=== PATIENT | male | born 1970 | race Caucasian/White ===

== ENCOUNTER 2018-01-02 14:17 | Observation (INO) | payer MEDICARE, OTHER ==
[~2018-01-02] VITALS: Ht 172.7 cm; Wt 110.0 kg
[~2018-01-02 14:17] MED LIST: DICL75 PO; MEDR4PAK3 PO; PAXI20TA26 PO; ROBA750T3 PO
[2018-01-02 14:19] VITALS: BP 190/100; PULSE 115; RESP 28; TEMP 98.4; O2SAT 95
[2018-01-02] MEDS ORDERED: LISI-515 PO (17:32)
[2018-01-02] MEDS ORDERED: HYDR-3366 PO (17:32)
[2018-01-02] MEDS ORDERED: PAXI30TA7 PO (17:32)
--- NOTE | 2018-01-02 17:43 | PD ---
HPI Chief Complaint: Back/ Neck Pain or Injury Time Seen by Provider: 17:31 Travel History International Travel<30 days: No Contact w/Intl Traveler<30days: No Traveled to known affect area: No History of Present Illness HPI 47-year-old male here for evaluation of lower back pain, leg weakness, leg numbness. The patient reports that he had a mechanical fall and landed onto his back about 4 weeks ago. Since that time he has been having worsening lower back pain. Pain is described as ripping, constant, 9 out of 10, worse with movements. Dates that it is very difficult for him to ambulate because of the pain. He also describes thigh numbness. Pain is mainly over his left lower back. He denies urinary or bowel incontinence or retention. No history of IVDU. PFSH Past Medical History Blood Disorders: No Anxiety: Yes Depression: Yes Cancer: No Cardiovascular Problems: Yes Diabetes: No Diminished Hearing: No Endocrine: No Gastrointestinal Disorders: Yes GERD: Yes Glaucoma: No Genitourinary: No Hepatitis: No Hiatal Hernia: No Hypertension: No Immune Disorder: No Implanted Vascular Access Dvce: Yes Medical other: No (CHRONIC BACK PAIN) Musculoskeletal: Yes Neurologic: Yes Psychiatric: Yes Reproductive: No Respiratory: Yes Sleep Apnea: Yes Thyroid Disease: No PNEUMOCCOCAL Vaccine (Year): 2 Past Surgical History Body Medical Devices: HARDWARE NECK AND RIGHT LEG Neurologic Surgery: Yes (CERVICAL FUSION, NECK) Other Surgery: Yes Social History Alcohol Use: No Tobacco Use: Yes (1 PPD) Substance Use: No Allergies-Medications (Allergen,Severity, Reaction): Coded Allergies: acetaminophen (Unverified Allergy, Severe, 01/02/18) LIVER PROBLEMS alprazolam (Unverified Adverse Reaction, Severe, 01/02/18) zolpidem (Unverified Adverse Reaction, Severe, WAKES UP SOMEWHERE ELSE, 01/02/18) Reported Meds & Prescriptions Reported Meds & Active Scripts Active Reported Paxil (Paroxetine HCl) 30 Mg Tab 30 Mg PO DAILY [place] (Hydrocodone-Acetaminophen) 10-325 Mg Tab 1 Tab PO Q6H PRN Lisinopril 20 Mg Tab 20 Mg PO DAILY Review of Systems Except as stated in HPI: all other systems reviewed are Neg Physical Exam Narrative GENERAL: Well-developed, well-nourished, awake, alert, comfortable, no apparent distress. SKIN: Focused skin assessment warm/dry. HEAD: Atraumatic. Normocephalic. EYES: Pupils equal and round. No scleral icterus. No injection or drainage. ENT: No nasal bleeding or discharge. Mucous membranes pink and moist. NECK: Trachea midline. No JVD. CARDIOVASCULAR: Regular rate and rhythm. RESPIRATORY: No accessory muscle use. Clear to auscultation. Breath sounds equal bilaterally. GASTROINTESTINAL: Abdomen soft, non-tender, nondistended. MUSCULOSKELETAL: No obvious deformities. No clubbing. No cyanosis. No edema. No midline vertebral step-off or tenderness. NEUROLOGICAL: Awake and alert. No obvious cranial nerve deficits. Motor grossly within normal limits. Normal speech. Bilateral great toe extension present. No saddle anesthesia. Brisk patellar tendon reflexes bilaterally. Normal flexion and extension in bilateral lower extremities. PSYCHIATRIC: Appropriate mood and affect; insight and judgment normal. Data Data Last Documented VS Vital Signs Date Time Temp Pulse Resp B/P (MAP) Pulse Ox O2 Delivery O2 Flow Rate FiO2 01/02/18 18:19 93 18 225/124 (157) 95 01/02/18 14:19 98.4 Orders Orders Complete Blood Count With Diff (01/02/18 17:35) Comprehensive Metabolic Panel (01/02/18 17:35) Prothrombin Time / Inr (Pt) (01/02/18 17:35) Act Partial Throm Time (Ptt) (01/02/18 17:35) Iv Access Insert/Monitor (01/02/18 17:35) Ecg Monitoring (01/02/18 17:35) Oximetry (01/02/18 17:35) Sodium Chloride 0.9% Flush (Ns Flush) (01/02/18 17:45) Mri L Spine W/O Contrast (01/02/18 ) Ketorolac Inj (Toradol Inj) (01/02/18 17:45) Dexamethasone Inj (Decadron Inj) (01/02/18 17:45) Morphine Inj (Morphine Inj) (01/02/18 19:45) Enalaprilat Inj (Vasotec Inj) (01/02/18 20:15) Labs Laboratory Tests Test 01/02/18 17:55 White Blood Count 12.4 TH/MM3 Red Blood Count 5.28 MIL/MM3 Hemoglobin 16.1 GM/DL Hematocrit 46.3 % Mean Corpuscular Volume 87.6 FL Mean Corpuscular Hemoglobin 30.5 PG Mean Corpuscular Hemoglobin Concent 34.9 % Red Cell Distribution Width 15.5 % Platelet Count 316 TH/MM3 Mean Platelet Volume 8.2 FL Neutrophils (%) (Auto) 60.5 % Lymphocytes (%) (Auto) 27.2 % Monocytes (%) (Auto) 9.4 % Eosinophils (%) (Auto) 2.0 % Basophils (%) (Auto) 0.9 % Neutrophils # (Auto) 7.5 TH/MM3 Lymphocytes # (Auto) 3.4 TH/MM3 Monocytes # (Auto) 1.2 TH/MM3 Eosinophils # (Auto) 0.2 TH/MM3 Basophils # (Auto) 0.1 TH/MM3 CBC Comment DIFF FINAL Differential Comment Prothrombin Time 10.1 SEC Prothromb Time International Ratio 1.0 RATIO Activated Partial Thromboplast Time 36.4 SEC Blood Urea Nitrogen 16 MG/DL Creatinine 0.85 MG/DL Random Glucose 118 MG/DL Total Protein 8.4 GM/DL Albumin 4.2 GM/DL Calcium Level 9.3 MG/DL Alkaline Phosphatase 102 U/L Aspartate Amino Transf (AST/SGOT) 38 U/L Alanine Aminotransferase (ALT/SGPT) 56 U/L Total Bilirubin 0.5 MG/DL Sodium Level 138 MEQ/L Potassium Level 3.3 MEQ/L Chloride Level 103 MEQ/L Carbon Dioxide Level 28.7 MEQ/L Anion Gap 6 MEQ/L Estimat Glomerular Filtration Rate 96 ML/MIN MDM Medical Decision Making Medical Screen Exam Complete: Yes Emergency Medical Condition: Yes Differential Diagnosis Sciatica, cauda equina syndrome, spinal stenosis, lumbar fracture Narrative Course Initial vital signs show heart rate 115, blood pressure 190/100, pulse ox 95% on room air, tympanic temp of 98.4F. CBC: WBC 12.4, hemoglobin 16.1, medical 46.3, platelets 316. CMP is remarkable for potassium 3.3, otherwise unremarkable. MRI of the lumbar spine: CONCLUSION: 1. Moderate to severe spinal stenosis and bilateral foraminal narrowing at L4-5 secondary to diffuse asymmetric disc bulge to the left, facet joint hypertrophy and ligament laxity. 2. Moderate to severe left neuroforaminal narrowing and moderate right neuroforaminal narrowing at L5-S1 without spinal stenosis. 3. Mild to moderate bilateral foraminal narrowing without spinal stenosis at L3- 4. 4. Mild bilateral foraminal narrowing without spinal stenosis at L2-3. 5. Old moderate compression fracture of L1 with 3 mm of retropulsion of the posterior superior wall. 6. No acute fracture, spondylolisthesis or spondylolysis. 7. Degenerative disc disease at L4-5 and L5-S1 and T12-L1. Patient was initially given IV Decadron and IV Toradol, however his pain continues. His blood pressure also increased from triage vital signs. He was given a dose of IV morphine 4 mg and reports significant improvement in pain. His blood pressure still remains elevated. He takes lisinopril. I will give him a dose of Vasotec. The patient has no urinary or bowel incontinence or retention. He does note that when he is urinating he is unsure when he is finished as a sensation continues. He has brisk patellar tendon reflexes bilaterally and great toe extension present bilaterally. His left lower extremity appears to be somewhat weaker than his right lower cavity. He does admit to having an abnormal/ numbness sensation to his bilateral legs, seemingly worse on the right. There is no saddle anesthesia on exam. Case discussed with on-call neurosurgeon Dr. Gomez who has reviewed the patient' s MRI imaging. He will admit the patient to his service for likely operative intervention. Patient was made aware of all findings and is amenable with this plan. Diagnosis Primary Impression: Spinal stenosis at L4-L5 level Additional Impression: Intractable low back pain Admitting Information Admitting Physician Requests: Edgar Oneill MD Jan 02, 2018 17:42
[2018-01-02] MEDS ORDERED: DEXAMETHASONE SOD PHOS 20 MG/5 ML VIAL IV PUSH ONE (17:45)
[2018-01-02] MEDS ORDERED: KETOROLAC TROMETHAMINE 30 MG/ML (IVP) VIAL IV PUSH ONE (17:45)
[2018-01-02 18:19] VITALS: BP 225/124; PULSE 93; RESP 18; O2SAT 95
[2018-01-02 18:31] LABS: AUTOMATED NEUTROPHIL # 7.5 TH/MM3 (1.8-7.7); BASOPHIL # 0.1 TH/MM3 (0-0.2); BASOPHIL % 0.9 % (0.0-2.0); EOSINOPHIL # 0.2 TH/MM3 (0-0.4); HEMATOCRIT 46.3 % (39.0-51.0); HEMOGLOBIN 16.1 GM/DL (13.0-17.0); LYMPH % 27.2 % (9.0-44.0); LYMPHOCYTE # 3.4 TH/MM3 (1.0-4.8); MEAN CELL VOLUME 87.6 FL (80.0-100.0); MEAN CORPUSCULAR HEMOGLOBIN 30.5 PG (27.0-34.0); MEAN CORPUSCULAR HGB CONC 34.9 % (32.0-36.0); MEAN PLATELET VOLUME 8.2 FL (7.0-11.0); MONO % 9.4 % (0.0-8.0); MONOCYTE # 1.2 TH/MM3 (0-0.9); NEUT % 60.5 % (16.0-70.0); PLATELET COUNT 316 TH/MM3 (150-450); RED BLOOD COUNT 5.28 MIL/MM3 (4.50-5.90); RED CELL DISTRIBUTION WIDTH 15.5 % (11.6-17.2); WHITE BLOOD COUNT 12.4 TH/MM3 (4.0-11.0)
[2018-01-02 18:38] LABS: PROTHROMBIN TIME - PATIENT 10.1 SEC (9.8-11.6)
[2018-01-02 18:52] LABS: ALBUMIN 4.2 GM/DL (3.4-5.0); AST (GOT) 38 U/L (15-37); BICARBONATE 28.7 MEQ/L (21.0-32.0); BLOOD UREA NITROGEN 16 MG/DL (7-18); CALCIUM 9.3 MG/DL (8.5-10.1); CHLORIDE 103 MEQ/L (98-107); CREATININE 0.85 MG/DL (0.60-1.30); GLOMERULAR FILTRATION RATE 96 ML/MIN (>89); GLUCOSE,RANDOM 118 MG/DL (74-106); SODIUM (NA) 138 MEQ/L (136-145)
[2018-01-02 18:53] LABS: ALT (GPT) 56 U/L (12-78)
[2018-01-02 18:55] LABS: ALKALINE PHOSPHATASE 102 U/L (45-117); TOTAL BILIRUBIN ADULT 0.5 MG/DL (0.2-1.0); TOTAL PROTEIN 8.4 GM/DL (6.4-8.2)
--- NOTE | 2018-01-02 19:34 | RADRPT ---
EXAM DATE/TIME: 01/02/2018 18:49 [facility] COMPARISON: No previous studies available for comparison. INDICATIONS : Radiculopathy. Numbness in bilateral legs and unable to ambulate. MEDICAL HISTORY : Hypertension. SURGICAL HISTORY : Fusion, cervical. Right leg. ENCOUNTER: Initial ACUITY: 1 day PAIN SCORE: 0/10 LOCATION: Back. TECHNIQUE: Multiplanar multisequence MRI of the lumbar spine was performed without contrast. FINDINGS: There is an old moderate compression fracture involving the superior endplate of L1. There is 3 mm of retropulsion of the posterior-superior wall of L1. No acute compression deformity of the lumbar spin e is noted. No spondylolisthesis or spondylolysis is noted. There is disc space narrowing and loss of disc signal at L4-5 and L5-S1. T12-L1: There is 3 mm of retropulsion of the posterior superior wall of the L1 vertebral body resulting in sl ight effacement of the intrathecal sac. No spinal stenosis is noted. No focal disc herniation is note d. Mild facet joint hypertrophy and ligamentous laxity is noted. The bilateral neural foramina are pa tent. L1-L2: The thecal sac has a normal diameter. No evidence of disc bulge or protrusion. The neural foramina are patent bilaterally. Mild facet joint hypertrophy and ligament/is noted. L2-L3: Minimal diffuse disc bulge, facet hypertrophy and ligament laxity are noted resulting in mild bilater al foraminal narrowing but no spinal stenosis. No focal disc herniation is noted. L3-L4: Mild diffuse disc bulge, facet joint hypertrophy and ligamentous laxity result in mild to moderate fo raminal narrowing but no spinal stenosis. No focal disc herniation is noted. L4-L5: Moderate to severe spinal stenosis and bilateral foraminal narrowing is noted secondary to diffuse as ymmetric disc bulge to left, facet joint hypertrophy and ligamentous laxity. L5-S1: Diffuse disc bulge, facet joint hypertrophy and ligamentous laxity result in moderate to severe left neuroforaminal narrowing and moderate right neuroforaminal narrowing but no spinal stenosis. No focal disc herniation is noted. CONCLUSION: 1. Moderate to severe spinal stenosis and bilateral foraminal narrowing at L4-5 secondary to diffuse asymmetric disc bulge to the left, facet joint hypertrophy and ligament laxity. 2. Moderate to severe left neuroforaminal narrowing and moderate right neuroforaminal narrowing at L5 -S1 without spinal stenosis. 3. Mild to moderate bilateral foraminal narrowing without spinal stenosis at L3-4. 4. Mild bilateral foraminal narrowing without spinal stenosis at L2-3. 5. Old moderate compression fracture of L1 with 3 mm of retropulsion of the posterior superior wall. 6. No acute fracture, spondylolisthesis or spondylolysis. 7. Degenerative disc disease at L4-5 and L5-S1 and T12-L1. Jl Rodgers MD on January 02, 2018 at 19:23 Board Certified Radiologist. This report was verified electronically.
[2018-01-02] MEDS ORDERED: MORPHINE SULFATE 2 MG/ML INJ IV PUSH ONE (19:45)
[2018-01-02] MEDS ORDERED: ENALAPRILAT 2.5 MG/2 ML VIAL IV PUSH ONE (20:15)
[2018-01-02] MEDS ORDERED: HYDROmorphone HCL PF 2 MG/ML VIAL IV PUSH PRN (20:30)
[2018-01-02] MEDS ORDERED: NALOXONE HCL 0.4 MG/ML AMP IV PUSH PRN (20:30)
[2018-01-02] MEDS ORDERED: ENALAPRILAT 1.25 MG/ML VIAL IV PUSH SCH (20:30)
[2018-01-02] MEDS: DOCUSATE SODIUM 100 MG CAP PO SCH (20:50)
[2018-01-02 20:51] VITALS: BP 222/104; PULSE 80; RESP 18; O2SAT 97
[2018-01-02 21:23] VITALS: BP 211/76; PULSE 87; RESP 16; O2SAT 96
--- NOTE | 2018-01-02 21:25 | HHI.HP ---
[facility] Service Neurosurgery Primary Care Physician Benjamín James MD Chief Complaint: LBP History of Present Illness Mr. Frederick is a 47 y.o gentleman who states that approximately 6 or 7 months ago he developed diffuse numbness below the waist as well as some problems with his bladder sensation, but no definite bowel or bladder incontinence. The numbness gradually progressed over several months. On December 02, 2017 he states that he fell at a gas station and over the next 2 or 3 days developed progressive severe left low back gluteal and lower extremity pain radiating primarily to the lateral aspect of the left hip and leg. The numbness in the waist also increased at that time that he had no new problems with his bowel or bladder function. Also had about the same time in December 2017 he developed stiffness in his hands with decreased coordination. His walking also became worse with progressive gait unsteadiness. He states that he has lost control of his left leg primarily with some loss of coordination in the right leg. His left leg feels heavy. He has experienced moderate neck pain and aching discomfort over the past month. He feels an itching sensation in his forearms. He has a previous history of C4-6 anterior discectomy and fusion in 2001. Review of Systems General: No weight gain or loss or change in appetite. No recent fever, chills or sweats. No generalized fatigue. HEENT: No sore throat. No sinus congestion or drainage. No headaches. No hearing loss or tinnitus, blurred vision, diplopia, facial pain, weakness or numbness, or difficulty swallowing. Cardiovascular: No chest pain, palpations Pulmonary: No shortness of breath . Occasional productive cough due to smoking Gastrointestinal: No abdominal discomfort, nausea, vomiting, diarrhea, constipation. No gastroesophageal reflux. No problems with jaundice, ulcers, diverticulitis : No blood in the urine. No dysuria. No urinary urgency or incontinence, but states that he has difficulty telling when his bladder is full or empty. Integumentary: No skin lesions or rash. Neurologic: No memory loss, speech difficulty, difficulty with concentration, confusion. Positive difficulty with ambulation, lower extremity numbness, loss of upper extremity coordination as noted above Psychiatric: No anxiety or depression. Endocrine: No excessive thirst or urination, heat or cold tolerance. Hematologic: No significant bleeding or clotting disorder. No chronic anemia. Musculoskeletal: Neck and low back pain as noted above. Left knee discomfort. Past Family Social History Allergies: Coded Allergies: acetaminophen (Unverified Allergy, Severe, 01/02/18) LIVER PROBLEMS alprazolam (Unverified Adverse Reaction, Severe, 01/02/18) zolpidem (Unverified Adverse Reaction, Severe, WAKES UP SOMEWHERE ELSE, 01/02/18) Past Medical History HTN GERD Anxiety disorder Past Surgical History ACDF 2001 Right lower extremity surgery for tib-fib fracture Reported Medications Reported Meds & Active Scripts Active Reported Paxil (Paroxetine HCl) 30 Mg Tab 30 Mg PO DAILY [place] (Hydrocodone-Acetaminophen) 10-325 Mg Tab 1 Tab PO Q6H PRN Lisinopril 20 Mg Tab 20 Mg PO DAILY Family History Negative for cancer diabetes neurologic disorders Social History He smokes 1-1/2 pack cigarettes per day. No alcohol use Denies illicit drug use Physical Exam Vital Signs Vital Signs Date Time Temp Pulse Resp B/P (MAP) Pulse Ox O2 Delivery O2 Flow Rate FiO2 01/02/18 18:19 93 18 225/124 (157) 95 01/02/18 14:19 98.4 115 28 190/100 (130) 95 Physical Exam GENERAL: This is a well-nourished, well-developed patient, no apparent distress. SKIN: No abrasions, contusion, rash noted. Skin warm and dry. HEAD: Atraumatic. Normocephalic. No temporal or scalp tenderness. EYES: Sclerae are clear and nonicteric ENT: No facial edema or ecchymosis. No periorbital edema. No CSF otorrhea or rhinorrhea. No palpable facial fracture or deformity. NECK: Trachea midline. No cervical spine tenderness. CARDIOVASCULAR: Regular rate and rhythm without murmurs, gallops, or rubs. RESPIRATORY: Clear to auscultation. Breath sounds equal bilaterally. No wheezes , rales, or rhonchi. GASTROINTESTINAL: Abdomen soft, non-tender, nondistended. No hepato-splenomegaly , or palpable masses. No guarding. MUSCULOSKELETAL: Extremities without cyanosis, or edema. No joint tenderness, or edema noted. No calf tenderness. Dorsalis pedis pulses 2+ bilateral NEUROLOGICAL: Awake and alert Oriented X 3 Speech is clear Conversant and appropriate Follow simple commands well Answers questions appropriately Reasonable judgment and insight Recent and remote memory are intact No evidence of anxiety or depression Sensation is intact to light touch in the upper extremities. He complains of diffuse decreased sensation to light touch in the left greater than right lower extremity Strength is diminished to 4/5 hand intrinsics with 4/5 proximal left lower extremity strength in iliopsoas quadriceps and hamstrings with complaint of low back and gluteal pain with testing. Normal strength in the right lower extremity major flexion and extension groups Kodak's absent bilaterally Sustained bilateral ankle clonus Plantar responses extensor bilateral Fine motor movements moderately impaired in the upper extremities Laboratory Laboratory Tests Test 01/02/18 17:55 White Blood Count 12.4 Red Blood Count 5.28 Hemoglobin 16.1 Hematocrit 46.3 Mean Corpuscular Volume 87.6 Mean Corpuscular Hemoglobin 30.5 Mean Corpuscular Hemoglobin Concent 34.9 Red Cell Distribution Width 15.5 Platelet Count 316 Mean Platelet Volume 8.2 Neutrophils (%) (Auto) 60.5 Lymphocytes (%) (Auto) 27.2 Monocytes (%) (Auto) 9.4 Eosinophils (%) (Auto) 2.0 Basophils (%) (Auto) 0.9 Neutrophils # (Auto) 7.5 Lymphocytes # (Auto) 3.4 Monocytes # (Auto) 1.2 Eosinophils # (Auto) 0.2 Basophils # (Auto) 0.1 CBC Comment DIFF FINAL Differential Comment Prothrombin Time 10.1 Prothromb Time International Ratio 1.0 Activated Partial Thromboplast Time 36.4 Blood Urea Nitrogen 16 Creatinine 0.85 Random Glucose 118 Total Protein 8.4 Albumin 4.2 Calcium Level 9.3 Alkaline Phosphatase 102 Aspartate Amino Transf (AST/SGOT) 38 Alanine Aminotransferase (ALT/SGPT) 56 Total Bilirubin 0.5 Sodium Level 138 Potassium Level 3.3 Chloride Level 103 Carbon Dioxide Level 28.7 Anion Gap 6 Estimat Glomerular Filtration Rate 96 Result Diagram: 01/02/18175401/02/181754 Imaging 01/02/2018 MRI lumbar spine images are reviewed. This study reveals a chronic appearing L1 compression fracture without significant retropulsion. There is moderate decreased signal intensity at the L4 5 greater than L5-S1 level. Moderate severe diffuse L4 5 central to left greater than right disc and annular displacement with significant facet and ligament hypertrophy causes severe canal stenosis. Significant compression on the exiting left greater than right L5 nerve root. Moderate lateral recess stenosis at L5-S1 level with central disc displacement. Caprini VTE Risk Assessment Caprini VTE Risk Assessment: No/Low Risk (score <= 1) Caprini Risk Assessment Model Point Value = 1 Point Value = 2 Point Value = 3 Point Value = 5 Age 41-60 Minor surgery BMI > 25 kg/m2 Swollen legs Varicose veins or History of unexplained or recurrent spontaneous Oral contraceptives or hormone replacement Sepsis (< 1 month) Serious lung disease, including pneumonia (< 1 month) Abnormal pulmonary function Acute myocardial infarction Congestive heart failure (< 1 month) History of inflammatory bowel disease Medical patient at bed rest Age 61-74 Arthroscopic surgery Major open surgery (> 45 min) Laparoscopic surgery (> 45 min) Malignancy Confined to bed (> 72 hours) Immobilizing plaster cast Central venous access Age >= 75 History of VTE Family history of VTE Factor V Leiden Prothrombin [id number] Lupus anticoagulant Anticardiolipin antibodies Elevated serum homocysteine Heparin-induced thrombocytopenia Other congenital or acquired thrombophilia Stroke (< 1 month) Elective arthroplasty Hip, pelvis, or leg fracture Acute spinal cord injury (< 1 month) Prophylaxis Regimen Total Risk Factor Score Risk Level Prophylaxis Regimen 0-1 Low Early ambulation 2 Moderate Order ONE of the following: *Sequential Compression Device (SCD) *Heparin 5000 units SQ BID 3-4 Higher Order ONE of the following medications: *Heparin 5000 units SQ TID *Enoxaparin/Lovenox 40 mg SQ daily (WT < 150 kg, CrCl > 30 mL/min) *Enoxaparin/Lovenox 30 mg SQ daily (WT < 150 kg, CrCl > 10-29 mL/min) *Enoxaparin/Lovenox 30 mg SQ BID (WT < 150 kg, CrCl > 30 mL/min) AND/OR *Sequential Compression Device (SCD) 5 or more Highest Order ONE of the following medications: *Heparin 5000 units SQ TID (Preferred with Epidurals) *Enoxaparin/Lovenox 40 mg SQ daily (WT < 150 kg, CrCl > 30 mL/min) *Enoxaparin/Lovenox 30 mg SQ daily (WT < 150 kg, CrCl > 10-29 mL/min) *Enoxaparin/Lovenox 30 mg SQ BID (WT < 150 kg, CrCl > 30 mL/min) AND *Sequential Compression Device (SCD) Assessment and Plan Assessment and Plan Impression: 1. Moderately severe L4-5 stenosis 2. Progressive severe LBP 3. HTN 4. Exam findings consistent with myelopathy Plan: MRI cervical and thoracic spine to assess for possible spinal cord compression. Medications for pain control PT Short course steroids HTN meds Jorge Gomez MD Jan 02, 2018 21:25
[2018-01-02 21:41] VITALS: BP 179/85; PULSE 87; RESP 16; O2SAT 97
[2018-01-02] MEDS ORDERED: PILL SPLITTER OTHER PRN (21:45)
[2018-01-02] MEDS ORDERED: DEXAMETHASONE SOD PHOS 4 MG/ML VIAL IV PUSH SCH (22:00)
[2018-01-02 22:10] VITALS: BP 160/91; PULSE 95; RESP 20; TEMP 98.7; O2SAT 93
[2018-01-03] MEDS: DEXAMETHASONE SOD PHOS 4 MG/ML VIAL IV PUSH SCH ×3 (00:24→14:55)
[2018-01-03] MEDS: traMADol HCL 50 MG TAB PO PRN ×5 (01:28→21:47)
[2018-01-03 04:40] VITALS: BP 180/92; PULSE 87; RESP 20; TEMP 97.3; O2SAT 95
[2018-01-03] MEDS: MORPHINE SULFATE 4 MG/ML INJ IV PUSH PRN ×4 (05:59→18:28)
[2018-01-03 08:00] VITALS: BP 163/97; PULSE 92; RESP 18; TEMP 98; O2SAT 91
[2018-01-03] MEDS: LISINOPRIL 20 MG TAB PO SCH (08:58)
[2018-01-03] MEDS: PARoxetine HCL 20 MG TAB PO SCH (08:58)
[2018-01-03] MEDS: PANTOPRAZOLE SOD 40 MG DELAYED RELEASE TAB PO SCH (08:58)
[2018-01-03] MEDS: DOCUSATE SODIUM 100 MG CAP PO SCH ×2 (08:59→21:46)
[2018-01-03] MEDS: SODIUM CHLORIDE 0.9% FLUSH 10 ML FLUSH IV FLUSH PRN ×4 (09:00→18:28)
[2018-01-03 12:00] VITALS: BP 174/99; PULSE 103; RESP 18; TEMP 97.8; O2SAT 95
[2018-01-03] MEDS: NICOTINE 21 MG/24 HR PATCH T-DERMAL SCH (13:41)
--- NOTE | 2018-01-03 14:03 | RADRPT ---
EXAM DATE/TIME: 01/03/2018 12:34 [facility] COMPARISON: No previous studies available for comparison. INDICATIONS : Lower extremity weakness with uncontrolable spasms. MEDICAL HISTORY : Hypertension. SURGICAL HISTORY : Fusion, cervical. Fusion, lumbar. ORIF Rt leg ENCOUNTER: Subsequent ACUITY: 1 week PAIN SCORE: 0/10 LOCATION: back TECHNIQUE: Multiplanar multisequence MRI of the thoracic spine was performed. FINDINGS: Alignment: Straightening of normal lordosis is noted. There is no evidence of traumatic listhesis. Osseous structures and facet joints: Mild to moderate compression deformity is identified of the T12 vertebral body. There is posterior di splacement of the superior posterior corner of the vertebral body causing anterior epidural effacemen t. There is abutment but no significant compression of the spinal cord. Posterior epidural effacement is identified at the T10-11 level. There is focal bone marrow edema wit hin the right pedicle of T11. The facet joints appear irregular and slightly expanded. Moderate narro wing of the central spinal canal is noted with compression of the spinal cord. Intervertebral disc spaces: Small thoracic disc protrusions are noted. There is a small central disc protrusion at T6-7 and a sma ll right paracentral disc protrusion at T7-8. Neither these protrusions are causing significant cord compression. Intervertebral disc are a hernandez well-maintained. Neurologic structures: Moderate cord compression with altered signal intensity is identified at the T10-11 level. The compre ssion appears to be predominantly from the posterior elements and distortion of the facet joints as d escribed above. Central T2 hyperintense changes are noted. Spinal cord is otherwise normal in appearance. CONCLUSION: Moderate central spinal stenosis with cord compression and altered signal intensity within the spinal cord at the T10-11 level as described. Small focal disc protrusion without significant mass effect or cord compression at T6-7 and T7-8 Moderate old compression for mid T12 No other significant abnormality. Mendez Sánchez MD on January 03, 2018 at 13:45 Board Certified Radiologist. This report was verified electronically.
--- NOTE | 2018-01-03 15:39 | RADRPT ---
EXAM DATE/TIME: 01/03/2018 12:34 [place] COMPARISON: No previous studies available for comparison. INDICATIONS : Lower extremity weakness with uncontrolable spasms. MEDICAL HISTORY : Hypertension. SURGICAL HISTORY : Fusion, cervical. Fusion, lumbar. ORIF rt leg ENCOUNTER: Subsequent ACUITY: 1 week PAIN SCORE: 0/10 LOCATION: neck TECHNIQUE: Multiplanar, multisequence MRI examination of the cervical spine was performed. FINDINGS: VERTEBRAE: Normal vertebral body height. Homogeneous marrow signal. ALIGNMENT: No evidence of subluxation. CORD: There is some minimal T2 signal in the cord at C5-6 level likely myelomalacia. There may be some mini mal T2 signal in the cord at C6-7 as well. POST FOSSA: The cerebellar tonsils are normal in position. C2-C3: The thecal sac has a normal configuration. There is no evidence of disc herniation or spinal canal s tenosis. The neural foramina are patent bilaterally. C3-C4: Minimal broad-based disc bulge abuts ventral thecal sac. Slight cord flattening. No canal stenosis. U ncovertebral spurring causes mild right-sided and moderate left-sided neural foraminal narrowing. C4-C5: Anterior fusion. The thecal sac has a normal configuration. There is no evidence of disc herniation or spinal canal stenosis. The neural foramina are patent bilaterally. C5-C6: Anterior fusion. The thecal sac has a normal configuration. There is no evidence of disc herniation or spinal canal stenosis. Uncovertebral spurring causes mild bilateral neural foraminal narrowing. C6-C7: Moderate to large protrusion more eccentric to the left abuts the ventral thecal sac and causes moder ate canal stenosis. There is severe narrowing of the left lateral recess. Severe left-sided and moder ate right-sided neural foraminal encroachment. C7-T1: The thecal sac has a normal configuration. There is no evidence of disc herniation or spinal canal s tenosis. The neural foramina are patent bilaterally. CONCLUSION: 1. Moderate to large protrusion at C6-7 more eccentric to the left causes moderate canal stenosis. 2. Anterior fusion from C4-C6. 3. Probable myelomalacia in the cord at C5-6 level and possibly some minimal edema C6-7 level. Des Birch MD on January 03, 2018 at 15:32 Board Certified Radiologist. This report was verified electronically.
[2018-01-03 16:00] VITALS: BP 133/86; PULSE 102; RESP 17; TEMP 97.5; O2SAT 93
--- NOTE | 2018-01-03 16:13 | HHI.NSPN ---
(Raudel Gutierrez) History Chief Complaint: Back pain and leg weakness. (Raudel Gutierrez) Interval History 01/02: 47-year-old male here for evaluation of lower back pain, leg weakness, leg numbness. The patient reports that he had a mechanical fall and landed onto his back about 4 weeks ago. Since that time he has been having worsening lower back pain. Pain is described as ripping, constant, 9 out of 10, worse with movements. Dates that it is very difficult for him to ambulate because of the pain. He also describes thigh numbness. Pain is mainly over his left lower back. He denies urinary or bowel incontinence or retention. No history of IVDU. 01/03: The patient is awake in bed watching TV. He says he is doing "pretty good." He does continue to have the pain to the back as well as decreased sensation to both forearms and from the waist down. He states that his legs still do not do what he wants them to do. He denies any pain going down the extremities. He says that his pain is to the left lateral lower back/buttock region. He is moving all extremities spontaneously and without difficulty. (Raudel Gutierrez) Exam Results 01/01/18 01/01/18 01/02/18 01/02/18 01/03/18 01/03/18 06:00 18:00 06:00 18:00 06:00 18:00 Intake Total 240 ml 840 ml Output Total 350 ml 425 ml Balance -110 ml 415 ml Intake Oral 240 ml 840 ml Output Urine Total 350 ml 425 ml # Bowel Movements 0 0 Vital Signs Date Time Temp Pulse Resp B/P (MAP) Pulse Ox O2 Delivery O2 Flow Rate FiO2 01/03/18 12:00 97.8 103 18 174/99 (124) 95 01/03/18 08:00 98.0 92 18 163/97 (119) 91 01/03/18 06:07 18 01/03/18 04:40 97.3 87 20 180/92 (121) 95 01/03/18 02:03 19 01/02/18 22:53 Room Air 01/02/18 22:44 19 01/02/18 22:10 98.7 95 20 160/91 (114) 93 01/02/18 21:41 87 16 179/85 (116) 97 Room Air 01/02/18 21:23 87 16 211/76 (121) 96 Room Air 01/02/18 20:51 80 18 222/104 (143) 97 Room Air 01/02/18 18:19 93 18 225/124 (157) 95 01/02/18 14:19 98.4 115 28 190/100 (130) 95 (Raudel Gutierrez) Physical Examination GENERAL: Well-developed, well-nourished, awake & alert, appears comfortable, no apparent distress. PSYCHIATRIC: Normal affect, readily interacts. SKIN: WDI. HEENT: Normocephalic, atraumatic. NECK: Midline cervical spine NTTP. No JVD. Trachea midline. MUSCULOSKELETAL: GARCIA spontaneously, extremities NTTP, no evident clubbing or deformity. Moderately TTP to the upper thoracic spine, mildly TTP to the lumbar spine. TTP to the left lateral lower back & upper buttock. NEUROLOGICAL: AAOx3. Speech clear & appropriate but his voice is gravely. Follows commands w/o difficulty. Sensation decreased to light touch to the forearms bilaterally and from the waist down. Motor strength: LUE: Deltoid 5/5, biceps 5/5, triceps 5/5, wrist flexors & extensors 5/5, hand intrinsics & extrinsics 5/5. LLE: Iliopsoas 4/5, quadriceps 3+ to 4/5, hamstring 3+/5, tibialis anterior 4 +/5, gastrocnemius 4/5, extensor hallucis longus 4/5. Some of the weakness may be r/t pain to the lower back region. RUE: Deltoid 5/5, biceps 4+/5, triceps 4+/5, wrist flexors & extensors 5/5, hand intrinsics & extrinsics 4 to 4+/5. RLE: Iliopsoas 5/5, quadriceps 5/5, hamstring 5/5, tibialis anterior 5/5, gastrocnemius 5/5, extensor hallucis longus 4/5. No Kodak's bilaterally. No ankle clonus to the left, unable to evaluate the right due to prior surgery. Upward plantar response bilaterally. (Raudel Gutierrez) Lab, Micro, Other Results Recent Impressions Thoracic Spine MRI 01/03/18 0000 Signed Impressions: Service Date/Time: Wednesday, January 03, 2018 12:34 - CONCLUSION: Moderate central spinal stenosis with cord compression and altered signal intensity within the spinal cord at the T10-11 level as described. Small focal disc protrusion without significant mass effect or cord compression at T6-7 and T7- 8 Moderate old compression for mid T12 No other significant abnormality. Mendez Sánchez MD Lumbar Spine MRI 01/02/18 0000 Signed Impressions: Service Date/Time: January 18:49 - CONCLUSION: 1. Moderate to severe spinal stenosis and bilateral foraminal narrowing at L4-5 secondary to diffuse asymmetric disc bulge to the left, facet joint hypertrophy and ligament laxity. 2. Moderate to severe left neuroforaminal narrowing and moderate right neuroforaminal narrowing at L5-S1 without spinal stenosis. 3. Mild to moderate bilateral foraminal narrowing without spinal stenosis at L3-4. 4. Mild bilateral foraminal narrowing without spinal stenosis at L2-3. 5. Old moderate compression fracture of L1 with 3 mm of retropulsion of the posterior superior wall. 6. No acute fracture, spondylolisthesis or spondylolysis. 7. Degenerative disc disease at L4-5 and L5-S1 and T12-L1. Jl Rodgers MD Laboratory Tests Test 01/02/18 17:55 White Blood Count 12.4 TH/MM3 Red Blood Count 5.28 MIL/MM3 Hemoglobin 16.1 GM/DL Hematocrit 46.3 % Mean Corpuscular Volume 87.6 FL Mean Corpuscular Hemoglobin 30.5 PG Mean Corpuscular Hemoglobin Concent 34.9 % Red Cell Distribution Width 15.5 % Platelet Count 316 TH/MM3 Mean Platelet Volume 8.2 FL Neutrophils (%) (Auto) 60.5 % Lymphocytes (%) (Auto) 27.2 % Monocytes (%) (Auto) 9.4 % Eosinophils (%) (Auto) 2.0 % Basophils (%) (Auto) 0.9 % Neutrophils # (Auto) 7.5 TH/MM3 Lymphocytes # (Auto) 3.4 TH/MM3 Monocytes # (Auto) 1.2 TH/MM3 Eosinophils # (Auto) 0.2 TH/MM3 Basophils # (Auto) 0.1 TH/MM3 CBC Comment DIFF FINAL Differential Comment Prothrombin Time 10.1 SEC Prothromb Time International Ratio 1.0 RATIO Activated Partial Thromboplast Time 36.4 SEC Blood Urea Nitrogen 16 MG/DL Creatinine 0.85 MG/DL Random Glucose 118 MG/DL Total Protein 8.4 GM/DL Albumin 4.2 GM/DL Calcium Level 9.3 MG/DL Alkaline Phosphatase 102 U/L Aspartate Amino Transf (AST/SGOT) 38 U/L Alanine Aminotransferase (ALT/SGPT) 56 U/L Total Bilirubin 0.5 MG/DL Sodium Level 138 MEQ/L Potassium Level 3.3 MEQ/L Chloride Level 103 MEQ/L Carbon Dioxide Level 28.7 MEQ/L Anion Gap 6 MEQ/L Estimat Glomerular Filtration Rate 96 ML/MIN (Raudel Gutierrez) Medical Decision Making Impression and Plan Impression: 1. Moderately severe L4-5 stenosis 2. Progressive severe LBP 3. HTN Possible cauda equina syndrome. The patient is doing well and w/o any change in his neuro status. Some of his LLE weakness may be related to pain w/testing. Plan: Neuro checks. Pain control. Desamethasone. Mobilise patient w/assistance. Physical Therapy. Antihypertensives. Regular diet. NPO after midnight -. Plan to take the patient to the OR for an L4-5 lmainectectomy w/interbody fusion , PEEK cage & posterior instrumentation [id number]. (Raudel Gutierrez) Attending Statement On my examination today the patient remains with mild cervical and moderate lumbar paraspinous muscle tenderness. 4/5 hand intrinsics Mild weakness proximal left lower extremity motor testing with complaint of pain in the left low back and hip with movement. The patient's cervical, thoracic, lumbar spine imaging studies have all been reviewed and discussed with the patient. The lumbar results have been previously documented. MRI cervical spine reveals a large C6 7 herniated nucleus pulposus with severe canal stenosis. Positive increased signal intensity within the cervical cord. The thoracic study reveals moderately severe T10-11 canal stenosis with increasing intensity within the cord. Thoracic Spine MRI 01/03/18 0000 Signed Impressions: Service Date/Time: Wednesday, January 03, 2018 12:34 - CONCLUSION: Moderate central spinal stenosis with cord compression and altered signal intensity within the spinal cord at the T10-11 level as described. Small focal disc protrusion without significant mass effect or cord compression at T6-7 and T7- 8 Moderate old compression for mid T12 No other significant abnormality. Mendez Sánchez MD Cervical Spine MRI 01/03/18 0000 Signed Impressions: Service Date/Time: Wednesday, January 03, 2018 12:34 - CONCLUSION: 1. Moderate to large protrusion at C6-7 more eccentric to the left causes moderate canal stenosis. 2. Anterior fusion from C4-C6. 3. Probable myelomalacia in the cord at C5-6 level and possibly some minimal edema C6-7 level. Des Birch MD Lumbar Spine MRI 01/02/18 0000 Signed Impressions: Service Date/Time: January 18:49 - CONCLUSION: 1. Moderate to severe spinal stenosis and bilateral foraminal narrowing at L4-5 secondary to diffuse asymmetric disc bulge to the left, facet joint hypertrophy and ligament laxity. 2. Moderate to severe left neuroforaminal narrowing and moderate right neuroforaminal narrowing at L5-S1 without spinal stenosis. 3. Mild to moderate bilateral foraminal narrowing without spinal stenosis at L3-4. 4. Mild bilateral foraminal narrowing without spinal stenosis at L2-3. 5. Old moderate compression fracture of L1 with 3 mm of retropulsion of the posterior superior wall. 6. No acute fracture, spondylolisthesis or spondylolysis. 7. Degenerative disc disease at L4-5 and L5-S1 and T12-L1. Jl Rodgers MD Impression: 1. Severe C6-7 disc herniation with associated canal stenosis, increasing intensity within the cord, 2. T10-11 stenosis with increased signal intensity within the cord 3. Severe L4-5 spinal stenosis, herniated nucleus pulposis 4. Cervical myelopathy 5. Thoracic myelopathy 6. Lumbar radiculopathy, primarily left L4 5. No definite cauda equina syndrome Plan: Findings were discussed at length with the patient. Imaging studies were reviewed with him. His recommended he proceed initially with C6 7 ACDF, tentatively scheduled for . He will subsequently require T10 11 decompressive laminectomy and L4 5 laminectomy, possible interbody fusion. Risk and possible complications of the C6 7 ACDF have been discussed including the risk of anesthesia, organ failure, stroke, , bleeding, infection, nerve damage, pain, weakness, numbness, paralysis, loss of bowel, bladder or sexual function, spinal fluid leak, difficulty swallowing, hoarseness of voice, failure of instrumentation or fusion. All questions have been answered. He appears to understand and wishes to proceed with surgery on 01/06/2018 (Jorge Gomez MD) Raudel Gutierrez Jan 03, 2018 16:13 Jorge Gomez MD Jan 03, 2018 18:52
[2018-01-03 21:00] VITALS: BP 162/94; PULSE 99; RESP 18; TEMP 98.2; O2SAT 93
[2018-01-04] VITALS (7 sets, daily range): BP systolic 144–189; BP diastolic 80–99; PULSE 72–93; RESP 18–20; TEMP 96.1–97.7; O2SAT 94–98
[2018-01-04] MEDS: cloNIDine HCL 0.1 MG TAB PO PRN ×2 (01:15→23:53)
[2018-01-04] MEDS: MORPHINE SULFATE 4 MG/ML INJ IV PUSH PRN ×5 (02:21→21:44)
[2018-01-04] MEDS: ENALAPRILAT 1.25 MG/ML VIAL IV PUSH PRN (03:58)
[2018-01-04] MEDS: traMADol HCL 50 MG TAB PO PRN ×5 (03:58→23:54)
[2018-01-04] MEDS: PARoxetine HCL 20 MG TAB PO SCH (08:10)
[2018-01-04] MEDS: DOCUSATE SODIUM 100 MG CAP PO SCH ×2 (08:10→20:55)
[2018-01-04] MEDS: NICOTINE 21 MG/24 HR PATCH T-DERMAL SCH (08:10)
[2018-01-04] MEDS: PANTOPRAZOLE SOD 40 MG DELAYED RELEASE TAB PO SCH (08:10)
[2018-01-04] MEDS: LISINOPRIL 20 MG TAB PO SCH (08:10)
[2018-01-04] MEDS: REMOVE OLD PATCH T-DERMAL SCH (08:11)
--- NOTE | 2018-01-04 11:35 | HHI.NSPN ---
(Keisha Lowe) Note Status Status: Progress Note (Keisha Lowe) Interval History Interval History 01/02: 47-year-old male here for evaluation of lower back pain, leg weakness, leg numbness. The patient reports that he had a mechanical fall and landed onto his back about 4 weeks ago. Since that time he has been having worsening lower back pain. Pain is described as ripping, constant, 9 out of 10, worse with movements. Dates that it is very difficult for him to ambulate because of the pain. He also describes thigh numbness. Pain is mainly over his left lower back. He denies urinary or bowel incontinence or retention. No history of IVDU. 01/03: The patient is awake in bed watching TV. He says he is doing "pretty good." He does continue to have the pain to the back as well as decreased sensation to both forearms and from the waist down. He states that his legs still do not do what he wants them to do. He denies any pain going down the extremities. He says that his pain is to the left lateral lower back/buttock region. He is moving all extremities spontaneously and without difficulty. 01/04: sitting up in chair, no new neurological complaints. understands anticipated surgery Saturday with Dr. Gomez. (Keisha Lowe) Labs, Micro, & Vital Signs Results Date Time Temp Pulse Resp B/P (MAP) Pulse Ox O2 Delivery O2 Flow Rate FiO2 01/04/18 08:00 96.1 72 20 154/92 (112) 97 01/04/18 06:21 19 01/04/18 06:00 156/90 (112) 01/04/18 04:48 18 01/04/18 03:50 96.5 88 18 189/97 (127) 96 01/04/18 00:55 96.8 90 18 188/99 (128) 96 01/03/18 23:38 Room Air 01/03/18 21:00 98.2 99 18 162/94 (116) 93 01/03/18 16:00 97.5 102 17 133/86 (102) 93 01/03/18 12:00 97.8 103 18 174/99 (124) 95 Constitutional Vital Signs Date Time Temp Pulse Resp B/P (MAP) Pulse Ox O2 Delivery O2 Flow Rate FiO2 01/04/18 08:00 96.1 72 20 154/92 (112) 97 01/04/18 06:21 19 01/04/18 06:00 156/90 (112) 01/04/18 04:48 18 01/04/18 03:50 96.5 88 18 189/97 (127) 96 01/04/18 00:55 96.8 90 18 188/99 (128) 96 01/03/18 23:38 Room Air 01/03/18 21:00 98.2 99 18 162/94 (116) 93 01/03/18 16:00 97.5 102 17 133/86 (102) 93 01/03/18 12:00 97.8 103 18 174/99 (124) 95 (Keisha Lowe) Review of Systems Constitutional: DENIES: Fever, Chills Respiratory: DENIES: Apneas, Hemoptysis, Shortness of breath Cardiovascular: DENIES: Chest pain, Syncope Musculoskeletal: COMPLAINS OF: Back pain, Neck pain Neurologic: COMPLAINS OF: Localized weakness (Keisha Lowe) Physical Exam GENERAL: awake & alert, comfortable, no apparent distress. NEUROLOGICAL: AAOx3. Speech is fluent, Follows commands w/o difficulty. SKIN: warm and dry HEENT: Normocephalic, atraumatic. Nonicteric sclera. Pupils equal bilaterally. Gross hearing intact. NECK: mild decrease ROM with tenderness MUSCULOSKELETAL: moves upper extremities 5/5 with 4/5 hand intrinsics, 4/5 iliopsoas, quads, hamstrings, plantarflexion, dorsiflexion with complaints of pain RESP: clear, no wheezing (Keisha Lowe) GENERAL: awake & alert, comfortable, no apparent distress. NEUROLOGICAL: AAOx3. Speech is fluent, Follows commands w/o difficulty. SKIN: warm and dry HEENT: Normocephalic, atraumatic. Nonicteric sclera. Pupils equal bilaterally. Gross hearing intact. NECK: mild decrease ROM with tenderness MUSCULOSKELETAL: moves upper extremities 5/5 with 4/5 hand intrinsics, 4/5 iliopsoas, quads, hamstrings, plantarflexion, dorsiflexion with complaints of pain RESP: clear, no wheezing (Pa Esteban MD) Medications Current Medications Current Medications Medications (Trade) Dose Ordered Sig/Elliot Route PRN Reason Start Time Stop Time Status Last Admin Dose Admin Sodium Chloride (NS Flush) 2 ml UNSCH PRN IV FLUSH FLUSH AFTER USING IV ACCESS 01/02/18 17:45 01/03/18 18:28 Docusate Sodium (Colace) 100 mg BID PO 01/02/18 21:00 01/04/18 08:10 Pantoprazole Sodium (Protonix) 40 mg DAILY PO 01/03/18 09:00 01/04/18 08:10 Cyclobenzaprine HCl (Flexeril) 10 mg Q8H PRN PO MUSCLE SPASM 01/02/18 20:30 Morphine Sulfate (Morphine Inj) 4 mg Q3H PRN IV PUSH Pain 6-10;if unable to take PO 01/02/18 20:30 Hydromorphone HCl (Dilaudid Pf Inj) 0.5 mg Q3H PRN IV PUSH Pain 3-5; if unable to take PO 01/02/18 20:30 01/02/18 22:23 Morphine Sulfate (Morphine Inj) 4 mg Q3H PRN IV PUSH BREAKTHROUGH PAIN 01/02/18 20:30 01/04/18 06:00 Naloxone HCl (Narcan Inj) 0.4 mg UNSCH PRN IV PUSH SEE LABEL COMMENTS 01/02/18 20:30 Tramadol HCl (Ultram) 50 mg Q4H PRN PO PAIN SCALE 3 TO 5 01/02/18 20:30 Tramadol HCl (Ultram) 100 mg Q4H PRN PO PAIN SCALE 6 TO 10 01/02/18 20:30 01/04/18 08:10 Clonidine (Catapres) 0.1 mg Q6H PRN PO SYS BP GREATER THAN 170 MMHG 01/02/18 20:30 01/04/18 01:15 Enalaprilat (Vasotec Inj) 1.25 mg Q8H PRN IV PUSH SBP>160, DBP>90 01/03/18 04:30 01/04/18 03:58 Lisinopril (Prinivil) 20 mg DAILY PO 01/03/18 09:00 01/04/18 08:10 Paroxetine HCl (Paxil) 30 mg DAILY PO 01/03/18 09:00 01/04/18 08:10 Miscellaneous (Pill Splitter) 1 ea UNSCH PRN OTHER SEE LABEL COMMENTS 01/02/18 21:45 Nicotine (Habitrol 21 Mg Patch.24 Hr) 1 patch DAILY T-DERMAL 01/03/18 12:00 01/04/18 08:10 Miscellaneous Information 1 DAILY T-DERMAL 01/04/18 09:00 (Keisha Lowe) Current Medications Current Medications Sodium Chloride (NS Flush) 2 ml UNSCH PRN IV FLUSH FLUSH AFTER USING IV ACCESS Last administered on 01/03/18 18:28; Start 01/02/18 at 17:45 Ketorolac Tromethamine (Toradol Inj) 30 mg ONCE ONCE IV PUSH Last administered on 01/02/18at 18:04; Start 01/02/18 at 17:45; Stop 01/02/18 at 17:46; Status DC Dexamethasone Sodium Phosphate (Decadron Inj) 10 mg ONCE ONCE IV PUSH Last administered on 01/02/18at 18:04; Start 01/02/18 at 17:45; Stop 01/02/18 at 17:46; Status DC Morphine Sulfate (Morphine Inj) 4 mg ONCE ONCE IV PUSH Last administered on 01/02/18at 19:54; Start 01/02/18 at 19:45; Stop 01/02/18 at 19:46; Status DC Enalaprilat (Vasotec Inj) 5 mg ONCE ONCE IV PUSH Last administered on at 20:49; Start 01/02/18 at 20:15; Stop 01/02/18 at 20:16; Status DC Docusate Sodium (Colace) 100 mg BID PO Last administered on 01/04/18at 08:10; Start 01/02/18 at 21:00 Pantoprazole Sodium (Protonix) 40 mg DAILY PO Last administered on 01/04/18at 08: 10; Start 01/03/18 at 09:00 Cyclobenzaprine HCl (Flexeril) 10 mg Q8H PRN PO MUSCLE SPASM; Start 01/02/18 at 20:30 Morphine Sulfate (Morphine Inj) 4 mg Q3H PRN IV PUSH Pain 6-10;if unable to take PO; Start 01/02/18 at 20:30 Hydromorphone HCl (Dilaudid Pf Inj) 0.5 mg Q3H PRN IV PUSH Pain 3-5; if unable to take PO Last administered on 01/02/18at 22:23; Start 01/02/18 at 20:30 Morphine Sulfate (Morphine Inj) 4 mg Q3H PRN IV PUSH BREAKTHROUGH PAIN Last administered on 01/04/18at 12:43; Start 01/02/18 at 20:30 Naloxone HCl (Narcan Inj) 0.4 mg UNSCH PRN IV PUSH SEE LABEL COMMENTS; Start at 20:30 Tramadol HCl (Ultram) 50 mg Q4H PRN PO PAIN SCALE 3 TO 5; Start 01/02/18 at 20: 30 Tramadol HCl (Ultram) 100 mg Q4H PRN PO PAIN SCALE 6 TO 10 Last administered on 01/04/18at 08:10; Start 01/02/18 at 20:30 Clonidine (Catapres) 0.1 mg Q6H PRN PO SYS BP GREATER THAN 170 MMHG Last administered on 01/04/18at 01:15; Start 01/02/18 at 20:30 Enalaprilat (Vasotec Inj) 1.25 mg Q8H IV PUSH ; Start 01/02/18 at 20:30; Stop 01/02/18 at 20:55; Status DC Dexamethasone Sodium Phosphate (Decadron Inj) 4 mg Q8HR IV PUSH ; Start 01/02/18 at 22:00; Stop 01/02/18 at 22:00; Status DC Enalaprilat (Vasotec Inj) 1.25 mg Q8H PRN IV PUSH SBP>160, DBP>90 Last administered on 01/04/18at 03:58; Start 01/03/18 at 04:30 Dexamethasone Sodium Phosphate (Decadron Inj) 4 mg Q8H IV PUSH Last administered on 01/03/18at 14:55; Start 01/03/18 at 00:00; Stop 01/03/18 at 16:01; Status DC Lisinopril (Prinivil) 20 mg DAILY PO Last administered on 01/04/18at 08:10; Start 01/03/18 at 09:00 Paroxetine HCl (Paxil) 30 mg DAILY PO Last administered on 01/04/18at 08:10; Start 01/03/18 at 09:00 Miscellaneous (Pill Splitter) 1 ea UNSCH PRN OTHER SEE LABEL COMMENTS; Start at 21:45 Nicotine (Habitrol 21 Mg Patch.24 Hr) 1 patch DAILY T-DERMAL Last administered on 01/04/18at 08:10; Start 01/03/18 at 12:00 Miscellaneous Information 1 DAILY T-DERMAL ; Start 01/04/18 at 09:00 (Pa Esteban MD) Medical Decision Making MDM Remarks 47 y/o male with 1. Severe C6-7 disc herniation with associated canal stenosis, increasing intensity within the cord, 2. T10-11 stenosis with increased signal intensity within the cord 3. Severe L4-5 spinal stenosis, herniated nucleus pulposus 4. Cervical myelopathy 5. Thoracic myelopathy 6. Lumbar radiculopathy, primarily left L4 5. No definite cauda equina syndrome MRI cervical spine reveals a large C6 7 herniated nucleus pulposus with severe canal stenosis. Positive increased signal intensity within the cervical cord. The thoracic study reveals moderately severe T10-11 canal stenosis with increasing intensity within the cord. (Keisha Lowe) MDM Remarks Last 48 hours Impressions Thoracic Spine MRI 01/03/18 0000 Signed Impressions: Service Date/Time: Wednesday, January 03, 2018 12:34 - CONCLUSION: Moderate central spinal stenosis with cord compression and altered signal intensity within the spinal cord at the T10-11 level as described. Small focal disc protrusion without significant mass effect or cord compression at T6-7 and T7- 8 Moderate old compression for mid T12 No other significant abnormality. Mendez Sánchez MD Cervical Spine MRI 01/03/18 0000 Signed Impressions: Service Date/Time: Wednesday, January 03, 2018 12:34 - CONCLUSION: 1. Moderate to large protrusion at C6-7 more eccentric to the left causes moderate canal stenosis. 2. Anterior fusion from C4-C6. 3. Probable myelomalacia in the cord at C5-6 level and possibly some minimal edema C6-7 level. Des Birch MD (Pa Esteban MD) Plan Plan Remarks Dr. Gomez plans for C6 7 ACDF, tentatively scheduled for 01/06/2018, then subsequently require T10 11 decompressive laminectomy and L4 5 laminectomy, possible interbody fusion cont current care cont supportive care PT, ok to continue mobilize w/assistance (Keisha Lowe) Attending Statement ABOVE Will need surgical decompression of his neck and lumbar spine next week The exam, history, and the medical decision-making described in the above note were completed with the assistance of the mid-level provider. I reviewed and agree with the findings presented. I attest that I had a [id number] encounter with the patient on the same day, and personally performed and documented my assessment and findings in the medical record. (Pa Esteban MD) Keisha Lowe Jan 04, 2018 11:35 Pa Esteban MD Jan 04, 2018 12:47
[2018-01-04] MEDS: CYCLOBENZAPRINE HCL 10 MG TAB PO PRN (19:37)
[2018-01-05] VITALS: BP 176/80; PULSE 74; RESP 20; TEMP 97.5; O2SAT 97
[2018-01-05] MEDS: MORPHINE SULFATE 4 MG/ML INJ IV PUSH PRN ×6 (02:18→22:25)
[2018-01-05 03:36] VITALS: BP 138/88; PULSE 84; RESP 18; TEMP 97; O2SAT 95
[2018-01-05] MEDS: CYCLOBENZAPRINE HCL 10 MG TAB PO PRN ×2 (04:07→23:50)
[2018-01-05] MEDS: traMADol HCL 50 MG TAB PO PRN ×6 (04:08→21:32)
[2018-01-05 08:00] VITALS: BP 168/74; PULSE 69; RESP 18; TEMP 96.9; O2SAT 94
[2018-01-05] MEDS: SODIUM CHLORIDE 0.9% FLUSH 10 ML FLUSH IV FLUSH PRN (08:49)
[2018-01-05] MEDS: LISINOPRIL 20 MG TAB PO SCH (08:49)
[2018-01-05] MEDS: PARoxetine HCL 20 MG TAB PO SCH (08:50)
[2018-01-05] MEDS: DOCUSATE SODIUM 100 MG CAP PO SCH ×2 (08:50→21:32)
[2018-01-05] MEDS: NICOTINE 21 MG/24 HR PATCH T-DERMAL SCH (08:50)
[2018-01-05] MEDS: PANTOPRAZOLE SOD 40 MG DELAYED RELEASE TAB PO SCH (08:50)
[2018-01-05] MEDS: REMOVE OLD PATCH T-DERMAL SCH (08:51)
[2018-01-05] MEDS ORDERED: KETOROLAC TROMETHAMINE 30 MG/ML (IVP) VIAL IV PUSH ONE (10:45)
[2018-01-05 11:07] VITALS: BP 149/85; PULSE 63; RESP 18; TEMP 96.7; O2SAT 94
--- NOTE | 2018-01-05 11:55 | HHI.NSPN ---
(Keisha Lowe) His condition is quite complex, he is going for a C6 7 ACDF tomorrow, then subsequently he will require T10 11 decompressive laminectomy and L4 5 laminectomy, possible interbody fusion The surgery will be done by Dr Jason SANDOVALO tonight Preoperatibe antibiotics The exam, history, and the medical decision-making described in the above note were completed with the assistance of the mid-level provider. I reviewed and agree with the findings presented. I attest that I had a [id number] encounter with the patient on the same day, and personally performed and documented my assessment and findings in the medical record. (Pa Esteban MD) Note Status Status: Progress Note (Pa Esteban MD) Interval History Interval History 01/02: 47-year-old male here for evaluation of lower back pain, leg weakness, leg numbness. The patient reports that he had a mechanical fall and landed onto his back about 4 weeks ago. Since that time he has been having worsening lower back pain. Pain is described as ripping, constant, 9 out of 10, worse with movements. Dates that it is very difficult for him to ambulate because of the pain. He also describes thigh numbness. Pain is mainly over his left lower back. He denies urinary or bowel incontinence or retention. No history of IVDU. 01/03: The patient is awake in bed watching TV. He says he is doing "pretty good." He does continue to have the pain to the back as well as decreased sensation to both forearms and from the waist down. He states that his legs still do not do what he wants them to do. He denies any pain going down the extremities. He says that his pain is to the left lateral lower back/buttock region. He is moving all extremities spontaneously and without difficulty. 01/04: sitting up in chair, no new neurological complaints. understands anticipated surgery Saturday with Dr. Gomez. 01/05: no changes in pain or symptoms. eager for surgery tomorrow. denies chest pain, SOB, difficulty breathing. (Keisha Lowe) Labs, Micro, & Vital Signs Results Date Time Temp Pulse Resp B/P (MAP) Pulse Ox O2 Delivery O2 Flow Rate FiO2 01/05/18 11:07 96.7 63 18 149/85 (106) 94 01/05/18 08:00 96.9 69 18 168/74 (105) 94 01/05/18 03:36 97.0 84 18 138/88 (105) 95 01/05/18 00:00 97.5 74 20 176/80 (112) 97 01/04/18 20:00 97.2 88 18 158/80 (106) 95 01/04/18 18:02 Room Air 01/04/18 16:00 97.6 93 20 144/80 (101) 94 01/04/18 12:00 97.7 76 18 144/88 (106) 98 Constitutional Vital Signs Date Time Temp Pulse Resp B/P (MAP) Pulse Ox O2 Delivery O2 Flow Rate FiO2 01/05/18 11:07 96.7 63 18 149/85 (106) 94 01/05/18 08:00 96.9 69 18 168/74 (105) 94 01/05/18 03:36 97.0 84 18 138/88 (105) 95 01/05/18 00:00 97.5 74 20 176/80 (112) 97 01/04/18 20:00 97.2 88 18 158/80 (106) 95 01/04/18 18:02 Room Air 01/04/18 16:00 97.6 93 20 144/80 (101) 94 01/04/18 12:00 97.7 76 18 144/88 (106) 98 (Keisha Lowe) Review of Systems Constitutional: DENIES: Fever, Chills Cardiovascular: DENIES: Chest pain Musculoskeletal: COMPLAINS OF: Stiffness, Back pain, Neck pain Neurologic: COMPLAINS OF: Localized weakness, Paresthesias (Keisha Lowe) Physical Exam GENERAL: in bed appears comfortable, no apparent distress. NEUROLOGICAL: AAOx3. Pupils equal, facial motor symmetric. Speech is fluent, Follows commands w/o difficulty. SKIN: warm and dry HENT: Normocephalic, atraumatic. Nonicteric sclera. Gross hearing intact. NECK: mild decrease ROM with tenderness MUSCULOSKELETAL: moves upper extremities 5/5 with 4/5 hand intrinsics, 4/5 iliopsoas, quads, hamstrings, plantarflexion, dorsiflexion, left weaker than right RESP: clear, no wheezing (Keisha Lowe) GENERAL: in bed appears comfortable, no apparent distress. NEUROLOGICAL: AAOx3. Pupils equal, facial motor symmetric. Speech is fluent, Follows commands w/o difficulty. SKIN: warm and dry Heart. regukar rhythm and rate lungs are clear HENT: Normocephalic, atraumatic. Nonicteric sclera. Gross hearing intact. NECK: mild decrease ROM with tenderness MUSCULOSKELETAL: moves upper extremities 5/5 with 4/5 hand intrinsics, 4/5 iliopsoas, quads, hamstrings, plantarflexion, dorsiflexion, left weaker than right cerebellar exam is limited (Pa Esteban MD) Medications Current Medications Current Medications Medications (Trade) Dose Ordered Sig/Elliot Route PRN Reason Start Time Stop Time Status Last Admin Dose Admin Sodium Chloride (NS Flush) 2 ml UNSCH PRN IV FLUSH FLUSH AFTER USING IV ACCESS 01/02/18 17:45 01/05/18 08:49 Docusate Sodium (Colace) 100 mg BID PO 01/02/18 21:00 01/05/18 08:50 Pantoprazole Sodium (Protonix) 40 mg DAILY PO 01/03/18 09:00 01/05/18 08:50 Cyclobenzaprine HCl (Flexeril) 10 mg Q8H PRN PO MUSCLE SPASM 01/02/18 20:30 01/05/18 04:07 Morphine Sulfate (Morphine Inj) 4 mg Q3H PRN IV PUSH Pain 6-10;if unable to take PO 01/02/18 20:30 01/05/18 10:43 Hydromorphone HCl (Dilaudid Pf Inj) 0.5 mg Q3H PRN IV PUSH Pain 3-5; if unable to take PO 01/02/18 20:30 01/02/18 22:23 Morphine Sulfate (Morphine Inj) 4 mg Q3H PRN IV PUSH BREAKTHROUGH PAIN 01/02/18 20:30 01/05/18 06:06 Naloxone HCl (Narcan Inj) 0.4 mg UNSCH PRN IV PUSH SEE LABEL COMMENTS 01/02/18 20:30 Tramadol HCl (Ultram) 50 mg Q4H PRN PO PAIN SCALE 3 TO 5 01/02/18 20:30 Tramadol HCl (Ultram) 100 mg Q4H PRN PO PAIN SCALE 6 TO 10 01/02/18 20:30 01/05/18 08:50 Clonidine (Catapres) 0.1 mg Q6H PRN PO SYS BP GREATER THAN 170 MMHG 01/02/18 20:30 01/04/18 23:53 Enalaprilat (Vasotec Inj) 1.25 mg Q8H PRN IV PUSH SBP>160, DBP>90 01/03/18 04:30 01/04/18 03:58 Lisinopril (Prinivil) 20 mg DAILY PO 01/03/18 09:00 01/05/18 08:49 Paroxetine HCl (Paxil) 30 mg DAILY PO 01/03/18 09:00 01/05/18 08:50 Miscellaneous (Pill Splitter) 1 ea UNSCH PRN OTHER SEE LABEL COMMENTS 01/02/18 21:45 Nicotine (Habitrol 21 Mg Patch.24 Hr) 1 patch DAILY T-DERMAL 01/03/18 12:00 01/05/18 08:50 Miscellaneous Information 1 DAILY T-DERMAL 01/04/18 09:00 01/05/18 08:51 (Keisha Lowe) Current Medications Current Medications Sodium Chloride (NS Flush) 2 ml UNSCH PRN IV FLUSH FLUSH AFTER USING IV ACCESS Last administered on 01/05/18at 08:49; Start 01/02/18 at 17:45 Ketorolac Tromethamine (Toradol Inj) 30 mg ONCE ONCE IV PUSH Last administered on 01/02/18at 18:04; Start 01/02/18 at 17:45; Stop 01/02/18 at 17:46; Status DC Dexamethasone Sodium Phosphate (Decadron Inj) 10 mg ONCE ONCE IV PUSH Last administered on 01/02/18at 18:04; Start 01/02/18 at 17:45; Stop 01/02/18 at 17:46; Status DC Morphine Sulfate (Morphine Inj) 4 mg ONCE ONCE IV PUSH Last administered on 01/02/18at 19:54; Start 01/02/18 at 19:45; Stop 01/02/18 at 19:46; Status DC Enalaprilat (Vasotec Inj) 5 mg ONCE ONCE IV PUSH Last administered on at 20:49; Start 01/02/18 at 20:15; Stop 01/02/18 at 20:16; Status DC Docusate Sodium (Colace) 100 mg BID PO Last administered on 01/05/18 08:50; Start 01/02/18 at 21:00 Pantoprazole Sodium (Protonix) 40 mg DAILY PO Last administered on 01/05/18 08: 50; Start 01/03/18 at 09:00 Cyclobenzaprine HCl (Flexeril) 10 mg Q8H PRN PO MUSCLE SPASM Last administered on 01/05/18 04:07; Start 01/02/18 at 20:30 Morphine Sulfate (Morphine Inj) 4 mg Q3H PRN IV PUSH Pain 6-10;if unable to take PO Last administered on 01/05/18at 18:45; Start 01/02/18 at 20:30 Hydromorphone HCl (Dilaudid Pf Inj) 0.5 mg Q3H PRN IV PUSH Pain 3-5; if unable to take PO Last administered on 01/02/18at 22:23; Start 01/02/18 at 20:30 Morphine Sulfate (Morphine Inj) 4 mg Q3H PRN IV PUSH BREAKTHROUGH PAIN Last administered on 01/05/18at 06:06; Start 01/02/18 at 20:30 Naloxone HCl (Narcan Inj) 0.4 mg UNSCH PRN IV PUSH SEE LABEL COMMENTS; Start at 20:30 Tramadol HCl (Ultram) 50 mg Q4H PRN PO PAIN SCALE 3 TO 5; Start 01/02/18 at 20: 30 Tramadol HCl (Ultram) 100 mg Q4H PRN PO PAIN SCALE 6 TO 10 Last administered on 01/05/18 17:19; Start 01/02/18 at 20:30 Clonidine (Catapres) 0.1 mg Q6H PRN PO SYS BP GREATER THAN 170 MMHG Last administered on 01/04/18at 23:53; Start 01/02/18 at 20:30 Enalaprilat (Vasotec Inj) 1.25 mg Q8H IV PUSH ; Start 01/02/18 at 20:30; Stop 01/02/18 at 20:55; Status DC Dexamethasone Sodium Phosphate (Decadron Inj) 4 mg Q8HR IV PUSH ; Start 01/02/18 at 22:00; Stop 01/02/18 at 22:00; Status DC Enalaprilat (Vasotec Inj) 1.25 mg Q8H PRN IV PUSH SBP>160, DBP>90 Last administered on 01/04/18at 03:58; Start 01/03/18 at 04:30 Dexamethasone Sodium Phosphate (Decadron Inj) 4 mg Q8H IV PUSH Last administered on 01/03/18at 14:55; Start 01/03/18 at 00:00; Stop 01/03/18 at 16:01; Status DC Lisinopril (Prinivil) 20 mg DAILY PO Last administered on 01/05/18at 08:49; Start 01/03/18 at 09:00 Paroxetine HCl (Paxil) 30 mg DAILY PO Last administered on 01/05/18at 08:50; Start 01/03/18 at 09:00 Miscellaneous (Pill Splitter) 1 ea UNSCH PRN OTHER SEE LABEL COMMENTS; Start at 21:45 Nicotine (Habitrol 21 Mg Patch.24 Hr) 1 patch DAILY T-DERMAL Last administered on 01/05/18at 08:50; Start 01/03/18 at 12:00 Miscellaneous Information 1 DAILY T-DERMAL Last administered on 01/05/18at 08:51 ; Start 01/04/18 at 09:00 Ketorolac Tromethamine (Toradol Inj) 30 mg ONCE ONCE IV PUSH Last administered on 01/05/18at 10:44; Start 01/05/18 at 10:45; Stop 01/05/18 at 10:46; Status DC (Pa Esteban MD) Medical Decision Making MDM Remarks 47 y/o male with 1. Severe C6-7 disc herniation with associated canal stenosis, increasing intensity within the cord, 2. T10-11 stenosis with increased signal intensity within the cord 3. Severe L4-5 spinal stenosis, herniated nucleus pulposus 4. Cervical myelopathy 5. Thoracic myelopathy 6. Lumbar radiculopathy, primarily left L4 5. No definite cauda equina syndrome MRI cervical spine reveals a large C6 7 herniated nucleus pulposus with severe canal stenosis. Positive increased signal intensity within the cervical cord. The thoracic study reveals moderately severe T10-11 canal stenosis with increasing intensity within the cord. (Keisha Lowe) Plan Plan Remarks Jason Buck to return tomorrow - plans for C6 7 ACDF tomorrow, then subsequently require T10 11 decompressive laminectomy and L4 5 laminectomy, possible interbody fusion NPO tonight cont current care cont PT, ok to continue mobilize w/assistance (Keisha Lowe) Keisha Lowe Jan 05, 2018 11:55 Pa Esteban MD Jan 05, 2018 19:43
[2018-01-05 16:00] VITALS: BP 155/82; PULSE 82; RESP 18; TEMP 97.9; O2SAT 94
[2018-01-05 20:00] VITALS: BP 158/87; PULSE 85; RESP 16; TEMP 96.9; O2SAT 95
[2018-01-05] MEDS: cloNIDine HCL 0.1 MG TAB PO PRN (23:48)
[2018-01-06 00:33] VITALS: BP 158/88
[2018-01-06] MEDS: MORPHINE SULFATE 4 MG/ML INJ IV PUSH PRN ×5 (02:31→21:26)
[2018-01-06 04:00] VITALS: BP 126/78; PULSE 66; RESP 15; TEMP 96.7; O2SAT 97
[2018-01-06 08:15] VITALS: BP 154/92; PULSE 76; RESP 19; TEMP 96.8; O2SAT 95
[2018-01-06] MEDS: PARoxetine HCL 20 MG TAB PO SCH (08:27)
[2018-01-06] MEDS: LISINOPRIL 20 MG TAB PO SCH (08:27)
[2018-01-06] MEDS: DOCUSATE SODIUM 100 MG CAP PO SCH ×2 (08:28→21:23)
[2018-01-06] MEDS: PANTOPRAZOLE SOD 40 MG DELAYED RELEASE TAB PO SCH (08:28)
[2018-01-06] MEDS: SODIUM CHLORIDE 0.9% FLUSH 10 ML FLUSH IV FLUSH PRN ×2 (08:29→09:26)
[2018-01-06] MEDS: LACTATED RINGER'S 1000 ML IV PRN ×2 (08:45→10:30)
[2018-01-06] MEDS: REMOVE OLD PATCH T-DERMAL SCH (09:00)
[2018-01-06] MEDS ORDERED: GENTAMICIN SULFATE 80 MG/2 ML VIAL ONE (09:40)
[2018-01-06] MEDS ORDERED: LIDOCAINE 1%/EPINEPHrine 1:100,000 SOLN 50 ML VIAL ONE (09:40)
[2018-01-06] MEDS ORDERED: THROMBIN (TOPICAL) 5,000 UNIT VIAL ONE (09:40)
[2018-01-06] MEDS ORDERED: GELFOAM SIZE 100 ONE (09:40)
[2018-01-06] MEDS ORDERED: ARTIFICIAL TEARS OPTH OINT 3.5 APPLIC/3.5 GM TUBO ONE (09:44)
[2018-01-06] MEDS ORDERED: PROPOFOL 500 MG/50 ML INJ 100 ML ONE ×2 (09:44→12:22)
[2018-01-06] MEDS ORDERED: ceFAZolin INJ 1,000 MG VIAL IV ONE ×2 (10:45→12:00)
[2018-01-06] MEDS ORDERED: METOPROLOL TARTRATE 25 MG TAB PO PRN (10:45)
[2018-01-06] MEDS ORDERED: SODIUM CHLORID 0.9% 500 ML IV PRN (10:45)
[2018-01-06] MEDS ORDERED: CHLORHEXIDINE GLUCONATE 2 % 1 PACK (2 CLOTHS) TOPICAL PRN (10:45)
[2018-01-06] MEDS ORDERED: POVIDONE IODINE 5% (ANTISEPSIS KIT) 4 APPLICATIONS EACH NARE PRN (10:45)
[2018-01-06] MEDS ORDERED: INSULIN HUMAN REGULAR 1,000 UNITS/10 ML VIAL SQ PRN (10:45)
[2018-01-06] MEDS ORDERED: RESP: ALBUTEROL CONC 2.5 MG/0.5 ML NEB ONE ×2 (11:23→15:07)
[2018-01-06] MEDS ORDERED: PHENYLEPH/NS 1000 MCG/10 ML SYR IV ONE (12:00)
[2018-01-06] MEDS ORDERED: ROCURONIUM INJ 50 MG/5 ML SYRINGE IV PUSH ONE (12:00)
[2018-01-06] MEDS ORDERED: PHENYLEPHRINE HCL 10 MG/ML VIAL IV ONE (12:00)
[2018-01-06] MEDS ORDERED: hydrALAZINE HCL 20 MG/ML VIAL IV ONE (12:00)
[2018-01-06] MEDS ORDERED: ONDANSETRON HCL 4 MG/2 ML VIAL IV ONE (12:00)
[2018-01-06] MEDS ORDERED: LABETALOL HCL 100 MG/20 ML VIAL IV ONE (12:00)
[2018-01-06] MEDS ORDERED: LIDOCAINE HCL 1% PF 5 ML SYRINGE OTHER ONE (12:00)
[2018-01-06] MEDS ORDERED: DEXAMETHASONE SOD PHOS 4 MG/ML VIAL IV ONE (12:00)
[2018-01-06] MEDS ORDERED: PROPOFOL 200 MG/20 ML AMP IV ONE (12:00)
[2018-01-06] MEDS ORDERED: METOPROLOL TARTRATE 5 MG/5 ML VIAL IV ONE (12:00)
[2018-01-06] MEDS ORDERED: LACTATED RINGER'S 1000 ML INJ 1,000 ML IV ONE (12:00)
[2018-01-06] MEDS ORDERED: ceFAZolin 2 GM PREMIX 50 ML ONE (14:31)
[2018-01-06] MEDS ORDERED: MIDAZOLAM HCL 2 MG/2 ML VIAL ONE ×2 (15:08→17:34)
[2018-01-06] MEDS ORDERED: *RESP: ALBUTEROL 2.5 MG/3 ML NEB (PRN) PERIprocedural Use ONLY NEB ONE ×2 (15:14→18:42)
[2018-01-06] MEDS ORDERED: DEXMEDETOMIDINE HCL 200 MCG/2 ML VIAL ONE (15:27)
[2018-01-06 16:29] VITALS: O2SAT 93
[2018-01-06] MEDS ORDERED: DO NOT ADM ANY ANTICOAGULANT DRUGS PRN (16:29)
[2018-01-06] MEDS: D5-NS + KCL 20 MEQ INJ 1,000 ML IV SCH ×2 (17:30→21:36)
[2018-01-06] MEDS ORDERED: MORPHINE SULFATE 4 MG/ML INJ ONE ×2 (17:35)
--- NOTE | 2018-01-06 17:38 | PD.OP ---
Operative Report Date of Surgery: Jan 06, 2018 Preoperative Diagnosis: (1) Cervical disc disease with myelopathy 1. Large C6-7 herniated nucleus pulposus with severe canal stenosis 2. Cervical myelopathy 3. Status post previous C4-C6 anterior discectomy and fusion Postoperative Diagnosis: (1) Cervical disc disease with myelopathy 1. Large C6-7 herniated nucleus pulposus with severe canal stenosis 2. Cervical myelopathy 3. 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 C6-7 anterior cervical discectomy, resection herniated nucleus pulposus 2. C6-7 anterior interbody fusion with composite allograft bone 3. Resection previous C5- 6 nonunion, resection posterior osteophyte, bilateral foraminotomy. 4. C5-6 anterior interbody fusion with composite allograft bone 5. Removal previous C4-6 anterior instrumentation 6. Placement of C4-C7 anterior cervical instrumentation Anesthesia: Gen. Surgeon: Jorge Gomez [place] Hand(s): Carla Leija Operation and Findings: Findings: Nonunion at the C5-6 level was significant mobility of the segment. Significant soft tissue within the residual C5-6 interspace. Large sequestered C6-7 herniated nucleus pulposis posterior to the annulus with partial disruption of the posterior longitudinal ligament. Procedure in detail: The patient was brought into the operating room and positioned in supine position on the 3080 table with the head and neck in neutral position. Rodriguez catheter was placed. Lines were established by Anesthesia. Gen. endotracheal anesthesia was induced without difficulty, taking care not to significantly flex or extend the patient's neck during intubation and positioning. Leads for intraoperative neuro monitoring were placed and a baseline study obtained. A lead for recurrent laryngeal nerve monitoring was placed along the endotracheal tube. All extremities were appropriately padded. The neck and upper chest were shaved with clippers and sterilely prepped and draped. Appropriate timeout procedure was performed with all personnel present and in agreement 1% Xylocaine with epinephrine was used for local infiltration over the incision site which was made transversely at the right C6-7 level and carried sharply down through the platysma muscle. The exposure was continued medial to the sternocleidomastoid muscle and carotid artery, and lateral to the trachea and esophagus. The prevertebral fascia was elevated away from the anterior longitudinal ligament with a Kitner sponge. The longus coli muscle on each side was elevated with the Branham elevator. Soft tissue formation over the existing C4-C6 anterior cervical plate was elevated with the Branham elevator and the thin ligament dissector. The self-retaining retractor was placed with the blades beneath the longus coli muscle on each side. The appropriate levels were confirmed with intraoperative C-arm and preoperative imaging studies. The microscope was brought into place and used for the remainder of the procedure including the closure. The screws at the C4 and C6 levels holding down the existing plate were removed and the plate lifted away from the vertebral bodies and removed. The 14 mm distraction pins were used as needed for gentle distraction at the C6- 7 level during the procedure. After removal of the anterior plate, there was noted to be a nonunion at the C5 6 level with significant soft tissue present at the residual C5-6 interspace was significant motion present at this level. It was thus elected to perform a revision C5-6 anterior interbody fusion with resection of the soft tissue at the nonunion site. The procedure was performed sequentially at the C5 6 and C6 7 levels. At each level the anterior osteophyte was resected with the Leksell rongeur. The disc and annulus at the C6 7 level and scar tissue formation at the C5 6-6 level was incised with a 15 blade knife and discectomy performed with pituitary biopsy forceps and straight and angled curettes. The TPS drill with the 5 mm barrel bur was used to decorticate the endplates and removed the majority of the osteophyte along the anterior spinal canal as well as the right and left uncovertebral joint. The thin ligament dissector was used to free up the posterior annulus and ligament from the vertebral body margin. The remainder of the resection of the posterior annulus and ligament as well as the posterior osteophyte and bilateral uncovertebral joint was performed with the 2 and 3 mm thin footplate Kerrison rongeurs. A large component of herniated nucleus pulposus was encountered posterior to the annulus at the C6-7 level, and was lifted away from the thecal sac with the thickened ligament dissector and removed. Significant posterior osteophyte was encountered and extensively removed. The posterior vertebral bodies were undercut with the Kerrison rongeur and the TPS drill with the 4 mm lexus bur as needed to fully decompress the anterior spinal canal. The appropriate size V G2 bone graft was then placed at each level with a good fit of the graft. The blunt nerve hook was used to probe beneath the bone graft to ensure that there was no impingement on the thecal sac or exiting nerve roots. The appropriate size Precision anterior cervical plate was then chosen and the bone screws were placed with the 14 mm fixed screws at the caudal most level and the 14 mm variable screws at the cephalad level of the decompression. Additional screws were placed at the left C5 level and right C6 level. The screws were firmly secured and the locking cams engaged. The entire construct was checked with intraoperative C-arm and felt to be satisfactory. The 10 Amharic drain was brought out through a small incision in the left lower neck and secured to the skin with nylon suture and attached to sterile suction. The closure was performed with 3-0 Vicryl running for the platysma and interrupted for the subcutaneous closure, with 4-0 Vicryl running for the subcuticular closure. A dressing of sterile Mastisol, Steri-Strips, and Primapore dressing was placed. The patient was placed into a cervical collar, and taken to recovery room in stable condition. All counts were correct at the end of the case. Estimated blood loss was 200 cc No specimen was sent to pathology. Intraoperative neuro monitoring remained stable during the procedure. Jorge Gomez MD Jan 06, 2018 17:38
[2018-01-06] MEDS: NICOTINE 21 MG/24 HR PATCH T-DERMAL SCH (19:31)
[2018-01-06 20:25] VITALS: BP 144/94; PULSE 93; RESP 19; TEMP 97; O2SAT 99
--- NOTE | 2018-01-06 21:23 | RADRPT ---
EXAM DATE/TIME: 01/06/2018 11:12 [facility] COMPARISON: No previous studies available for comparison. INDICATIONS : C-spine Level 6-7 fusion- ORIF. MEDICAL HISTORY : Hypertension. SURGICAL HISTORY : Fusion, cervical. Fusion, lumbar. ORIF Rt leg ENCOUNTER: Initial ACUITY: 1 day PAIN SCORE: Non-responsive. LOCATION: Neck. FINDINGS: Status post anterior cervical fusion from C4-C7. There appears to be good alignment of the cervical s pine fusion on these 2 views. There is limited visualization of the lower cervical (C6 and C7) spine on the lateral view. CONCLUSION: Good alignment on the visualized portions of this examination.. Iván Uriarte MD on January 06, 2018 at 21:18 Board Certified Radiologist. This report was verified electronically.
[2018-01-06 23:22] VITALS: BP 162/92; PULSE 89; RESP 18; TEMP 97.3; O2SAT 96
[2018-01-07] VITALS (7 sets, daily range): BP systolic 131–186; BP diastolic 74–108; PULSE 83–99; RESP 17–19; TEMP 96.9–98.3; O2SAT 93–98
[2018-01-07] MEDS: traMADol HCL 50 MG TAB PO PRN ×2 (00:45→05:53)
[2018-01-07] MEDS: MORPHINE SULFATE 4 MG/ML INJ IV PUSH PRN ×6 (02:35→23:15)
[2018-01-07] MEDS: D5-NS + KCL 20 MEQ INJ 1,000 ML IV SCH ×3 (02:40→20:38)
[2018-01-07] MEDS: PARoxetine HCL 20 MG TAB PO SCH (07:53)
[2018-01-07] MEDS: CYCLOBENZAPRINE HCL 10 MG TAB PO PRN ×2 (07:53→22:06)
[2018-01-07] MEDS: DOCUSATE SODIUM 100 MG CAP PO SCH ×2 (07:53→20:45)
[2018-01-07] MEDS: PANTOPRAZOLE SOD 40 MG DELAYED RELEASE TAB PO SCH (07:53)
[2018-01-07] MEDS: LISINOPRIL 20 MG TAB PO SCH (07:54)
[2018-01-07] MEDS: NICOTINE 21 MG/24 HR PATCH T-DERMAL SCH (07:55)
[2018-01-07] MEDS: REMOVE OLD PATCH T-DERMAL SCH (07:55)
[2018-01-07 07:59] LABS: AUTOMATED NEUTROPHIL # 14.6 TH/MM3 (1.8-7.7); BASOPHIL % 0.2 % (0.0-2.0); EOSINOPHIL # 0.1 TH/MM3 (0-0.4); EOSINOPHIL % 0.3 % (0.0-4.0); HEMATOCRIT 40.1 % (39.0-51.0); HEMOGLOBIN 13.5 GM/DL (13.0-17.0); LYMPH % 14.6 % (9.0-44.0); LYMPHOCYTE # 2.8 TH/MM3 (1.0-4.8); MEAN CORPUSCULAR HEMOGLOBIN 29.7 PG (27.0-34.0); MEAN CORPUSCULAR HGB CONC 33.7 % (32.0-36.0); MEAN PLATELET VOLUME 8.4 FL (7.0-11.0); MONO % 9.7 % (0.0-8.0); MONOCYTE # 1.9 TH/MM3 (0-0.9); NEUT % 75.2 % (16.0-70.0); PLATELET COUNT 309 TH/MM3 (150-450); RED BLOOD COUNT 4.56 MIL/MM3 (4.50-5.90); RED CELL DISTRIBUTION WIDTH 15.1 % (11.6-17.2); WHITE BLOOD COUNT 19.4 TH/MM3 (4.0-11.0)
[2018-01-07 08:15] LABS: BICARBONATE 27.3 MEQ/L (21.0-32.0); CALCIUM 8.6 MG/DL (8.5-10.1); CREATININE 0.71 MG/DL (0.60-1.30)
--- NOTE | 2018-01-07 10:56 | HHI.NSPN ---
(Raudel Gutierrez) History Chief Complaint: Some soreness to surgical incision. (Raudel Gutierrez) Interval History 01/02: 47-year-old male here for evaluation of lower back pain, leg weakness, leg numbness. The patient reports that he had a mechanical fall and landed onto his back about 4 weeks ago. Since that time he has been having worsening lower back pain. Pain is described as ripping, constant, 9 out of 10, worse with movements. Dates that it is very difficult for him to ambulate because of the pain. He also describes thigh numbness. Pain is mainly over his left lower back. He denies urinary or bowel incontinence or retention. No history of IVDU. 01/03: The patient is awake in bed watching TV. He says he is doing "pretty good." He does continue to have the pain to the back as well as decreased sensation to both forearms and from the waist down. He states that his legs still do not do what he wants them to do. He denies any pain going down the extremities. He says that his pain is to the left lateral lower back/buttock region. He is moving all extremities spontaneously and without difficulty. 3: sitting up in chair, no new neurological complaints. understands anticipated surgery Saturday with Dr. Gomez. 01/05: no changes in pain or symptoms. eager for surgery tomorrow. denies chest pain, SOB, difficulty breathing. 01/06: The patient went for a C6-7 anterior cervical discectomy with resection of a herniated nucleus pulposus and interbody fusion. He then had a resection of a previous C5-6 nonunion and a posterior osteophyte with an interbody fusion. After that was removal and replacement of the previous C4-6 anterior cervical instrumentation. Post-operatively the patient returned to a regular med /surg floor. 01/07: The patient is awake and alert sitting up in the chair when seen this morning. He states that he is doing good. He does have some soreness to the surgical incision and a slight sore throat. He denies any hoarseness by saying "it sounds like me." He continues to have the back pain and the numbness from the umbilicus down. He states that the strength and numbness to the upper extremities is improved. Nursing does report that Speech Therapy did a swallow evaluation and felt that the patient was able to do a regular diet. The patient does state he is to have surgery to the lower back later on and was wondering if he was able to go home. (Raudel Gutierrez) Exam Results 01/05/18 01/05/18 01/06/18 01/06/18 01/07/18 01/07/18 06:00 18:00 06:00 18:00 06:00 18:00 Intake Total 1200 ml 960 ml 1300 ml 2500 ml 3037 ml Output Total 220 ml 1745 ml Balance 1200 ml 960 ml 1300 ml 2280 ml 1292 ml Intake Oral 1200 ml 960 ml 1300 ml 840 ml IV Total 2197 ml Other 2500 ml Output Urine Total 1675 ml Drainage Total 20 ml 70 ml Estimated Blood Loss 200 ml # Voids 4 5 4 # Bowel Movements 1 0 Vital Signs Date Time Temp Pulse Resp B/P (MAP) Pulse Ox O2 Delivery O2 Flow Rate FiO2 01/07/18 09:00 169/108 (128) 01/07/18 08:00 20 01/07/18 08:00 97.1 93 17 186/108 (134) 93 01/07/18 04:10 96.9 83 18 131/74 (93) 97 01/07/18 01:45 18 01/06/18 23:22 97.3 89 18 162/92 (115) 96 01/06/18 20:25 97.0 93 19 144/94 (111) 99 01/06/18 19:15 79 15 148/86 (106) 93 Nasal Cannula 4 01/06/18 19:00 76 15 149/86 (107) 93 Nasal Cannula 4 01/06/18 18:45 77 15 148/82 (104) 92 Nasal Cannula 4 01/06/18 18:30 80 15 155/84 (107) 92 Nasal Cannula 4 01/06/18 18:15 80 15 181/81 (114) 94 Nasal Cannula 4 01/06/18 18:00 79 15 176/84 (114) 91 Nasal Cannula 4 2/5/18 17:45 81 15 173/77 (109) 90 Nasal Cannula 4 01/06/18 17:30 79 15 152/68 (96) 90 Nasal Cannula 4 01/06/18 17:15 72 15 150/67 (94) 94 Mechanical Ventilator 50 01/06/18 17:00 74 15 153/63 (93) 93 Mechanical Ventilator 50 01/06/18 16:45 75 15 132/56 (81) 93 Mechanical Ventilator 50 01/06/18 16:29 93 50 01/06/18 16:25 70 01/06/18 16:25 98.6 74 15 82/43 (56) 96 Mechanical Ventilator 50 01/06/18 08:15 96.8 76 19 154/92 (112) 95 01/06/18 04:00 96.7 66 15 126/78 (94) 97 01/06/18 00:33 158/88 (111) 01/05/18 20:00 96.9 85 16 158/87 (110) 95 01/05/18 16:00 97.9 82 18 155/82 (106) 94 01/05/18 11:07 96.7 63 18 149/85 (106) 94 01/05/18 08:00 96.9 69 18 168/74 (105) 94 01/05/18 03:36 97.0 84 18 138/88 (105) 95 01/05/18 00:00 97.5 74 20 176/80 (112) 97 01/04/18 20:00 97.2 88 18 158/80 (106) 95 01/04/18 18:02 Room Air 01/04/18 16:00 97.6 93 20 144/80 (101) 94 01/04/18 12:00 97.7 76 18 144/88 (106) 98 (Raudel Gutierrez) Physical Examination GENERAL: Awake & alert in the chair watching TV. He readily interacts. His affect is normal. He appears comfortable and not in any distress. NECK: [place] J cervical collar in place. Anterior surgical incision TTP, dressing dry & intact w/o any shadowing, KIKA drain to bulb suction w/ serosanguinous drainage. Midline cervical spine NTTP. No JVD. Trachea midline. CARDIOVASCULAR: S1S2 w/RRR w/o M/G/R. RESPIRATORY: CTAB w/o W/R/R, equal excusion, nonlaboured, on RA. GASTROINTESTINAL: Abdomen soft, nontender, decreased sensation at the level of the umbilicus and caudally, positive bowel sounds. MUSCULOSKELETAL: GARCIA spontaneously & to command w/o difficulty. No evident clubbing or deformity. Moderately TTP to the upper thoracic spine, mildly TTP to the lumbar spine. TTP to the left lateral lower back & upper buttock. NEUROLOGICAL: AAOx3. Speech clear & appropriate. Follows commands w/o difficulty. Sensation is decreased from the level of the umbilicus caudally but intact to light touch to the upper extremities. Motor strength: LUE: Deltoid 5/5, biceps 5/5, triceps 5/5, wrist flexors & extensors 5/5, hand intrinsics & extrinsics 5/5. LLE: Iliopsoas 4+ to 5/5, quadriceps 4+/5, hamstring 4+/5, tibialis anterior 5/5, gastrocnemius 5/5, extensor hallucis longus 4+/5. Some of the weakness may be r/t pain to the lower back region. RUE: Deltoid 5/5, biceps 5/5, triceps 5/5, wrist flexors & extensors 5/5, hand intrinsics & extrinsics 4+ to 5/5. RLE: Iliopsoas 5/5, quadriceps 5/5, hamstring 5/5, tibialis anterior 5/5, gastrocnemius 5/5, extensor hallucis longus 4/5. (Raudel Gutierrez) Lab, Micro, Other Results Recent Impressions Cervical Spine X-Ray 01/06/18 0000 Signed Impressions: Service Date/Time: Saturday, January 06, 2018 11:12 - CONCLUSION: Good alignment on the visualized portions of this examination.. Iván Uriarte MD Laboratory Tests Test 01/07/18 06:02 White Blood Count 19.4 TH/MM3 Red Blood Count 4.56 MIL/MM3 Hemoglobin 13.5 GM/DL Hematocrit 40.1 % Mean Corpuscular Volume 88.0 FL Mean Corpuscular Hemoglobin 29.7 PG Mean Corpuscular Hemoglobin Concent 33.7 % Red Cell Distribution Width 15.1 % Platelet Count 309 TH/MM3 Mean Platelet Volume 8.4 FL Neutrophils (%) (Auto) 75.2 % Lymphocytes (%) (Auto) 14.6 % Monocytes (%) (Auto) 9.7 % Eosinophils (%) (Auto) 0.3 % Basophils (%) (Auto) 0.2 % Neutrophils # (Auto) 14.6 TH/MM3 Lymphocytes # (Auto) 2.8 TH/MM3 Monocytes # (Auto) 1.9 TH/MM3 Eosinophils # (Auto) 0.1 TH/MM3 Basophils # (Auto) 0.0 TH/MM3 CBC Comment DIFF FINAL Differential Comment Blood Urea Nitrogen 17 MG/DL Creatinine 0.71 MG/DL Random Glucose 102 MG/DL Calcium Level 8.6 MG/DL Sodium Level 139 MEQ/L Potassium Level 3.9 MEQ/L Chloride Level 104 MEQ/L Carbon Dioxide Level 27.3 MEQ/L Anion Gap 8 MEQ/L Estimat Glomerular Filtration Rate 118 ML/MIN (Raudel Gutierrez) Medical Decision Making Impression and Plan Impression: 1. Moderately severe L4-5 stenosis 2. Progressive severe LBP 3. HTN Possible cauda equina syndrome . The patient is doing well today. He has improved motor strength throughout and improved sensory to the upper extremities. Afebrile. Reviewed labs for today. Leukocytosis w/neutrophilia. KIKA drain output since surgery is 90 mL as of shift change this morning. POD #1 () s/p: 1. C6-7 anterior cervical discectomy, resection herniated nucleus pulposus 2. C6-7 anterior interbody fusion with composite allograft bone 3. Resection previous C5- 6 nonunion, resection posterior osteophyte, bilateral foraminotomy. 4. C5-6 anterior interbody fusion with composite allograft bone 5. Removal previous C4-6 anterior instrumentation 6. Placement of C4-C7 anterior cervical instrumentation Postoperative Diagnosis: (1) Cervical disc disease with myelopathy 1. Large C6-7 herniated nucleus pulposus with severe canal stenosis 2. Cervical myelopathy 3. 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 Pain control. Monitor KIKA drain & output. [place] cervical collar. Mobilise patient w/assistance. Physical Therapy. Speech Therapy. Antihypertensives. Regular diet per Speech Therapy. CBC in AM. D/C Rodriguez catheter. (Raudel Gutierrez) Attending Statement The exam, history, and the medical decision-making described in the above note were completed with the assistance of the mid-level provider. I reviewed and agree with the findings presented. I attest that I had a [id number] encounter with the patient on the same day, and personally performed and documented my assessment and findings in the medical record. On my examination today he is awake and alert. He states that he tolerated a regular diet well. Remains with significant hoarseness of voice, unchanged from preoperative. Continued complaint of low back pain. Numbness and paresthesias unchanged postoperative Doing well postoperative Monitored drain output Therapy (Jorge Gomez MD) Raudel Gutierrez Jan 07, 2018 10:56 Jorge Gomez MD Jan 07, 2018 15:51
[2018-01-08 00:05] VITALS: BP 185/104; PULSE 85; RESP 19; TEMP 96.9; O2SAT 94
[2018-01-08] MEDS: cloNIDine HCL 0.1 MG TAB PO PRN ×2 (00:31→09:19)
[2018-01-08] MEDS: MORPHINE SULFATE 4 MG/ML INJ IV PUSH PRN ×3 (02:13→08:26)
[2018-01-08 04:20] VITALS: BP 189/98; PULSE 81; RESP 19; TEMP 97; O2SAT 94
[2018-01-08] MEDS: ENALAPRILAT 1.25 MG/ML VIAL IV PUSH PRN (04:20)
[2018-01-08 08:00] VITALS: BP 184/95; PULSE 115; RESP 18; TEMP 98; O2SAT 98
[2018-01-08] MEDS: LISINOPRIL 20 MG TAB PO SCH (08:25)
[2018-01-08] MEDS: DOCUSATE SODIUM 100 MG CAP PO SCH (08:25)
[2018-01-08] MEDS: CYCLOBENZAPRINE HCL 10 MG TAB PO PRN (08:25)
[2018-01-08] MEDS: NICOTINE 21 MG/24 HR PATCH T-DERMAL SCH (08:25)
[2018-01-08] MEDS: REMOVE OLD PATCH T-DERMAL SCH (08:25)
[2018-01-08] MEDS: PANTOPRAZOLE SOD 40 MG DELAYED RELEASE TAB PO SCH (08:25)
[2018-01-08] MEDS: PARoxetine HCL 20 MG TAB PO SCH (08:25)
[2018-01-08] MEDS: D5-NS + KCL 20 MEQ INJ 1,000 ML IV SCH (08:26)
[2018-01-08 08:31] VITALS: RESP 18
[2018-01-08] MEDS ORDERED: HYDR-3366 PO (09:17)
--- NOTE | 2018-01-08 09:18 | HHI.DCPOC ---
Discharge Care Plan Your Health Problems Are: Difficulty with ADL Incision/Drains Exercise Tolerance Chronic Pain Difficulty with Speech Goals to Promote Your Health * To prevent worsening of your condition and complications * To maintain your health at the optimal level Directions to Meet Your Goals Take your medications as prescribed Follow your dietary instruction Follow activity as directed Keep your appointments as scheduled Take your immunizations and boosters as scheduled If your symptoms worsen call your PCP, if no PCP go to Urgent Care Center or Emergency Room Smoking is Dangerous to Your Health. Avoid second hand smoke Call the 24-hour hour crisis hotline for domestic abuse at Jorge Gomez MD Jan 08, 2018 09:18
--- NOTE | 2018-01-08 10:44 | HHI.NSPN ---
History Chief Complaint: Some surgical site pain. Interval History 01/02: 47-year-old male here for evaluation of lower back pain, leg weakness, leg numbness. The patient reports that he had a mechanical fall and landed onto his back about 4 weeks ago. Since that time he has been having worsening lower back pain. Pain is described as ripping, constant, 9 out of 10, worse with movements. Dates that it is very difficult for him to ambulate because of the pain. He also describes thigh numbness. Pain is mainly over his left lower back. He denies urinary or bowel incontinence or retention. No history of IVDU. 01/03: The patient is awake in bed watching TV. He says he is doing "pretty good." He does continue to have the pain to the back as well as decreased sensation to both forearms and from the waist down. He states that his legs still do not do what he wants them to do. He denies any pain going down the extremities. He says that his pain is to the left lateral lower back/buttock region. He is moving all extremities spontaneously and without difficulty. 01/04: sitting up in chair, no new neurological complaints. understands anticipated surgery Saturday with Dr. Gomez. 01/05: no changes in pain or symptoms. eager for surgery tomorrow. denies chest pain, SOB, difficulty breathing. 01/06: The patient went for a C6-7 anterior cervical discectomy with resection of a herniated nucleus pulposus and interbody fusion. He then had a resection of a previous C5-6 nonunion and a posterior osteophyte with an interbody fusion. After that was removal and replacement of the previous C4-6 anterior cervical instrumentation. Post-operatively the patient returned to a regular med /surg floor. 01/07: The patient is awake and alert sitting up in the chair when seen this morning. He states that he is doing good. He does have some soreness to the surgical incision and a slight sore throat. He denies any hoarseness by saying "it sounds like me." He continues to have the back pain and the numbness from the umbilicus down. He states that the strength and numbness to the upper extremities is improved. Nursing does report that Speech Therapy did a swallow evaluation and felt that the patient was able to do a regular diet. The patient does state he is to have surgery to the lower back later on and was wondering if he was able to go home. 01/08: This morning the patient is doing well. He is sitting up in the chair. He denies any midline cervical pain but continues to have some pain to the surgical incision. He still has the numbness from the umbilicus caudally as well as the low back pain. He did go for a CT lumbar spine this morning. His neurological examination is stable compared to yesterday. Exam Results 01/06/18 01/06/18 01/07/18 01/07/18 01/08/18 01/08/18 06:00 18:00 06:00 18:00 06:00 18:00 Intake Total 1300 ml 2500 ml 3037 ml 480 ml 1200 ml Output Total 220 ml 1745 ml 2420 ml 20 ml Balance 1300 ml 2280 ml 1292 ml -1940 ml 1180 ml Intake Oral 1300 ml 840 ml 480 ml 1200 ml IV Total 2197 ml Other 2500 ml Output Urine Total 1675 ml 2400 ml Drainage Total 20 ml 70 ml 20 ml 20 ml Estimated Blood Loss 200 ml # Voids 4 2 8 # Bowel Movements 0 1 1 Vital Signs Date Time Temp Pulse Resp B/P (MAP) Pulse Ox O2 Delivery O2 Flow Rate FiO2 01/08/18 08:31 18 01/08/18 04:20 97.0 81 19 189/98 (128) 94 01/08/18 00:05 96.9 85 19 185/104 (131) 94 01/07/18 19:53 97.2 91 19 164/94 (117) 95 01/07/18 17:24 18 01/07/18 16:00 97.4 99 17 157/96 (116) 93 01/07/18 12:00 98.3 99 17 159/98 (118) 94 01/07/18 09:00 169/108 (128) 01/07/18 08:33 98 21 01/07/18 08:00 97.1 93 17 186/108 (134) 93 01/07/18 04:10 96.9 83 18 131/74 (93) 97 01/07/18 01:45 18 01/06/18 23:22 97.3 89 18 162/92 (115) 96 01/06/18 20:25 97.0 93 19 144/94 (111) 99 01/06/18 19:15 79 15 148/86 (106) 93 Nasal Cannula 4 01/06/18 19:00 76 15 149/86 (107) 93 Nasal Cannula 4 01/06/18 18:45 77 15 148/82 (104) 92 Nasal Cannula 4 01/06/18 18:30 80 15 155/84 (107) 92 Nasal Cannula 4 01/06/18 18:15 80 15 181/81 (114) 94 Nasal Cannula 4 01/06/18 18:00 79 15 176/84 (114) 91 Nasal Cannula 4 01/06/18 17:45 81 15 173/77 (109) 90 Nasal Cannula 4 01/06/18 17:30 79 15 152/68 (96) 90 Nasal Cannula 4 01/06/18 17:15 72 15 150/67 (94) 94 Mechanical Ventilator 50 01/06/18 17:00 74 15 153/63 (93) 93 Mechanical Ventilator 50 01/06/18 16:45 75 15 132/56 (81) 93 Mechanical Ventilator 50 01/06/18 16:29 93 50 01/06/18 16:25 70 01/06/18 16:25 98.6 74 15 82/43 (56) 96 Mechanical Ventilator 50 01/06/18 08:15 96.8 76 19 154/92 (112) 95 01/06/18 04:00 96.7 66 15 126/78 (94) 97 01/06/18 00:33 158/88 (111) 01/05/18 20:00 96.9 85 16 158/87 (110) 95 01/05/18 16:00 97.9 82 18 155/82 (106) 94 01/05/18 11:07 96.7 63 18 149/85 (106) 94 Physical Examination GENERAL: Awake & alert in the chair watching TV. He readily interacts. His affect is normal. He appears comfortable and not in any distress. NECK: [place] cervical collar in place. Anterior surgical incision TTP, dressing dry & intact w/o any shadowing. Midline cervical spine NTTP. No JVD. Trachea midline. MUSCULOSKELETAL: GARCIA spontaneously & to command w/o difficulty. No evident clubbing or deformity. Mildly TTP to the upper thoracic spine & the lumbar spine. TTP to the left lateral lower back & upper buttock. NEUROLOGICAL: AAOx3. Speech clear & appropriate. Follows commands w/o difficulty. Sensation is decreased from the level of the umbilicus caudally but intact to light touch to the upper extremities. Motor strength: LUE: Deltoid 5/5, biceps 5/5, triceps 5/5, wrist flexors & extensors 5/5, hand intrinsics & extrinsics 5/5. LLE: Iliopsoas 5/5, quadriceps 5/5, hamstring 5/5, tibialis anterior 5/5, gastrocnemius 5/5, extensor hallucis longus 4+/5. RUE: Deltoid 5/5, biceps 5/5, triceps 5/5, wrist flexors & extensors 5/5, hand intrinsics & extrinsics 5/5. RLE: Iliopsoas 5/5, quadriceps 5/5, hamstring 5/5, tibialis anterior 5/5, gastrocnemius 5/5, extensor hallucis longus 4+/5. Lab, Micro, Other Results Recent Impressions Cervical Spine X-Ray 01/06/18 0000 Signed Impressions: Service Date/Time: Saturday, January 06, 2018 11:12 - CONCLUSION: Good alignment on the visualized portions of this examination.. Iván Uriarte MD Laboratory Tests Test 01/07/18 06:02 01/07/18 11:22 White Blood Count 19.4 TH/MM3 Red Blood Count 4.56 MIL/MM3 Hemoglobin 13.5 GM/DL Hematocrit 40.1 % Mean Corpuscular Volume 88.0 FL Mean Corpuscular Hemoglobin 29.7 PG Mean Corpuscular Hemoglobin Concent 33.7 % Red Cell Distribution Width 15.1 % Platelet Count 309 TH/MM3 Mean Platelet Volume 8.4 FL Neutrophils (%) (Auto) 75.2 % Lymphocytes (%) (Auto) 14.6 % Monocytes (%) (Auto) 9.7 % Eosinophils (%) (Auto) 0.3 % Basophils (%) (Auto) 0.2 % Neutrophils # (Auto) 14.6 TH/MM3 Lymphocytes # (Auto) 2.8 TH/MM3 Monocytes # (Auto) 1.9 TH/MM3 Eosinophils # (Auto) 0.1 TH/MM3 Basophils # (Auto) 0.0 TH/MM3 CBC Comment DIFF FINAL Differential Comment Blood Urea Nitrogen 17 MG/DL Creatinine 0.71 MG/DL Random Glucose 102 MG/DL Calcium Level 8.6 MG/DL Sodium Level 139 MEQ/L Potassium Level 3.9 MEQ/L Chloride Level 104 MEQ/L Carbon Dioxide Level 27.3 MEQ/L Anion Gap 8 MEQ/L Estimat Glomerular Filtration Rate 118 ML/MIN Lactic Acid Level 1.7 mmol/L Medical Decision Making Impression and Plan Impression: 1. Moderately severe L4-5 stenosis 2. Progressive severe LBP 3. HTN Possible cauda equina syndrome . The patient continues to do well and his neuro exam remains stable compared to yesterday. Afebrile. KIKA drain output for the past 24 hrs is 40 mL as of shift change this morning. POD #2 () s/p: 1. C6-7 anterior cervical discectomy, resection herniated nucleus pulposus 2. C6-7 anterior interbody fusion with composite allograft bone 3. Resection previous C5- 6 nonunion, resection posterior osteophyte, bilateral foraminotomy. 4. C5-6 anterior interbody fusion with composite allograft bone 5. Removal previous C4-6 anterior instrumentation 6. Placement of C4-C7 anterior cervical instrumentation Postoperative Diagnosis: (1) Cervical disc disease with myelopathy 1. Large C6-7 herniated nucleus pulposus with severe canal stenosis 2. Cervical myelopathy 3. 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 Pain control. [place] cervical collar. Mobilise patient w/assistance. Antihypertensives. Regular diet. D/C KIKA drain. CT lumbar spine w/o contrast now for staging surgery next week. Will discharge patient home today. F/U in 1 week in the office. Raudel Gutierrez Jan 08, 2018 10:44
--- NOTE | 2018-01-08 13:51 | RADRPT ---
EXAM DATE/TIME: 01/08/2018 09:31 [facility] COMPARISON: MRI LUMBAR SPINE W/O CONTRAST, January 02, 2018, 18:49. INDICATIONS : Spinal stenosis, lower back pain. RADIATION DOSE: 35.86 CTDIvol (mGy) MEDICAL HISTORY : Cardiovascular disease. Gastroesophageal reflux disease. SURGICAL HISTORY : Fusion, cervical. ENCOUNTER: Initial ACUITY: 1 day PAIN SCALE: 7/10 LOCATION: Bilateral lower back TECHNIQUE: Volumetric scanning of the lumbar spine was performed. Multiplanar reconstructions in the sagittal, coronal and oblique axial planes were performed. Using automated exposure control and adjustment of the mA and/or kV according to patient size, radiation dose was kept as low as reasonably achievable t o obtain optimal diagnostic quality images. DICOM format image data is available electronically for review and comparison. FINDINGS: Again, there is an old moderate compression deformity involving super endplate of L1 with 3 mm of ret ropulsion of the posterior superior wall. No acute compression fracture or spondylolisthesis is noted . Disc space narrowing is noted at L4-5 and L5-S1. Vacuum disc phenomenon is noted at L5-S1. There is a 5 mm calcified nonobstructing lower pole right renal calculus. T12-L1: 3 mm of retropulsion of the posterior-superior wall of L1 resulting in slight effacement of the anter ior thecal sac. No spinal stenosis or focal disc herniation is noted. Mild facet joint hypertrophy an d ligamentous laxity is noted. The bilateral neuroforamina are patent L1-L2: The thecal sac has a normal diameter. No evidence of disc bulge or protrusion. The neural foramina are patent bilaterally. Mild facet joint hypertrophy and ligamentous laxity is noted. L2-L3: Minimal diffuse disc bulge, facet joint hypertrophy and ligamentous laxity are noted resulting in mil d bilateral foraminal narrowing but no spinal stenosis. No focal disc herniation is noted. L3-L4: Mild diffuse disc bulge, facet joint hypertrophy and ligamentous laxity resulting in mild to moderate foraminal narrowing but no spinal stenosis. No focal disc herniation is noted. L4-L5: Moderate to severe spinal stenosis and bilateral foraminal narrowing is noted secondary to diffuse as ymmetric disc bulge to the left, facet joint hypertrophy and ligament laxity. L5-S1: Diffuse disc bulge, facet joint hypertrophy and ligaments laxity resulting in moderate to severe left neural foraminal narrowing and moderate right neuroforaminal narrowing but no spinal stenosis. No fo luis disc herniation is noted. CONCLUSION: 1. Moderate to severe spinal stenosis and bilateral foraminal narrowing at L4-5. 2. Moderate to severe left neural foraminal narrowing and moderate right neural foraminal narrowing a t L5-S1. 3. Mild to moderate bilateral foraminal narrowing at L3-4. 4. Mild bilateral foraminal narrowing at L2-3. 5. Old moderate compression involving L1 with 3 mm of retropulsion of the posterior superior wall. 6. No acute fracture, spondylolysis or spondylolysis. 7. Degenerative disc disease L4-5, L5-S1, and T12-L1. 8. 5 mm calcified nonobstructing lower pole right renal calculus. Jl Rodgers MD on January 08, 2018 at 13:39 Board Certified Radiologist. This report was verified electronically.
--- NOTE | 2018-01-08 14:39 | HHI.DS ---
Discharge Summary Admission Date Jan 02, 2018 at 20:40 Discharge Date: Jan 08, 2018 Admitting Diagnosis severe spinal stenosis, intractable low back pain (1) Cervical disc disease with myelopathy Diagnosis: Principal ICD Code: M50.00 - Cervical disc disorder with myelopathy, unspecified cervical region (2) Lumbar back pain Diagnosis: Secondary ICD Code: M54.5 - Low back pain Procedures : 1. C6-7 anterior cervical discectomy, resection herniated nucleus pulposus 2. C6-7 anterior interbody fusion with composite allograft bone 3. Resection previous C5- 6 nonunion, resection posterior osteophyte, bilateral foraminotomy. 4. C5-6 anterior interbody fusion with composite allograft bone 5. Removal previous C4-6 anterior instrumentation 6. Placement of C4-C7 anterior cervical instrumentation Brief History Mr. Frederick is a 47 y.o gentleman who states that approximately 6 or 7 months ago he developed diffuse numbness below the waist as well as some problems with his bladder sensation, but no definite bowel or bladder incontinence. The numbness gradually progressed over several months. On December 02, 2017 he states that he fell at a gas station and over the next 2 or 3 days developed progressive severe left low back gluteal and lower extremity pain radiating primarily to the lateral aspect of the left hip and leg. The numbness in the waist also increased at that time that he had no new problems with his bowel or bladder function. Also had about the same time in December 2017 he developed stiffness in his hands with decreased coordination. His walking also became worse with progressive gait unsteadiness. He states that he has lost control of his left leg primarily with some loss of coordination in the right leg. His left leg feels heavy. He has experienced moderate neck pain and aching discomfort over the past month. He feels an itching sensation in his forearms. He has a previous history of C4-6 anterior discectomy and fusion in 2001. CBC/BMP: 01/07/18 0602 01/07/18 0602 Significant Findings Laboratory Tests Test 01/07/18 06:02 01/07/18 11:22 White Blood Count 19.4 TH/MM3 (4.0-11.0) Neutrophils (%) (Auto) 75.2 % (16.0-70.0) Monocytes (%) (Auto) 9.7 % (0.0-8.0) Neutrophils # (Auto) 14.6 TH/MM3 (1.8-7.7) Monocytes # (Auto) 1.9 TH/MM3 (0-0.9) Hospital Course 01/02: 47-year-old male here for evaluation of lower back pain, leg weakness, leg numbness. The patient reports that he had a mechanical fall and landed onto his back about 4 weeks ago. Since that time he has been having worsening lower back pain. Pain is described as ripping, constant, 9 out of 10, worse with movements. Dates that it is very difficult for him to ambulate because of the pain. He also describes thigh numbness. Pain is mainly over his left lower back. He denies urinary or bowel incontinence or retention. No history of IVDU. 01/03: The patient is awake in bed watching TV. He says he is doing "pretty good." He does continue to have the pain to the back as well as decreased sensation to both forearms and from the waist down. He states that his legs still do not do what he wants them to do. He denies any pain going down the extremities. He says that his pain is to the left lateral lower back/buttock region. He is moving all extremities spontaneously and without difficulty. 01/04: sitting up in chair, no new neurological complaints. understands anticipated surgery Saturday with Dr. Gomez. 01/05: no changes in pain or symptoms. eager for surgery tomorrow. denies chest pain, SOB, difficulty breathing. 01/06: The patient went for a C6-7 anterior cervical discectomy with resection of a herniated nucleus pulposus and interbody fusion. He then had a resection of a previous C5-6 nonunion and a posterior osteophyte with an interbody fusion. After that was removal and replacement of the previous C4-6 anterior cervical instrumentation. Post-operatively the patient returned to a regular med /surg floor. 01/07: The patient is awake and alert sitting up in the chair when seen this morning. He states that he is doing good. He does have some soreness to the surgical incision and a slight sore throat. He denies any hoarseness by saying "it sounds like me." He continues to have the back pain and the numbness from the umbilicus down. He states that the strength and numbness to the upper extremities is improved. Nursing does report that Speech Therapy did a swallow evaluation and felt that the patient was able to do a regular diet. The patient does state he is to have surgery to the lower back later on and was wondering if he was able to go home. 01/08: This morning the patient is doing well. He is sitting up in the chair. He denies any midline cervical pain but continues to have some pain to the surgical incision. He still has the numbness from the umbilicus caudally as well as the low back pain. He did go for a CT lumbar spine this morning. His neurological examination is stable compared to yesterday. Pt Condition on Discharge: Good Discharge Disposition: Discharge Home Discharge Instructions DIET: Follow Instructions for: As Tolerated, No Restrictions, Soft Diet Speech Therapy-Diet Recommenda: Regular ACTIVITIES You can perform: Weight Bearing As Wang Activities to Avoid: Lifting/Bending, Strenuous Activity, Bathing, Shower ADDITIONAL Activity Instructio: Wear the cervical collar at all times. It may briefly be taken off for personal hygiene. No lifting, bending, pushing, pulling or other strenuous activity. No showering until the surgical incision is totally healed. Additional Information Wear the cervical collar at all times. It may briefly be taken off for personal hygiene. No lifting, bending, pushing, pulling or other strenuous activity. Leave the dressing on over the surgical incisions for 1 week. After that you may take the outer dressing off but leave the steri-strips on. If the steri- strips do not fall off by day 10 then you may gently remove them. No showering until the surgical incision is totally healed. Take the pain medication as prescribed. Avoid taking any medication that contains aspirin or NSAIDs (ibuprofen, naproxen , Motrin, Advil, Naprosyn) for at least a month. Raudel Gutierrez Jan 08, 2018 14:39
== END 2018-01-08 11:03 | disposition home or self-care (01) ==
LOC: NEPD 14:17 → UNDOADMIN 20:10 → NEDA 20:10 → INTOOBSV 20:40 → NEDA 20:40 → N06B 22:08
PROVIDERS: ADMIT Neurological Surgery; ATTEND Neurological Surgery
DX: M50.023 Cervical disc disorder at C6-C7 level with myelopathy (principal); M25.78 Osteophyte, vertebrae; M48.061 Spinal stenosis, lumbar region without neurogenic claudication; R53.1 Weakness; K21.9 Gastro-esophageal reflux disease without esophagitis; G47.30 Sleep apnea, unspecified; M79.662 Pain in left lower leg; M25.552 Pain in left hip; R20.0 Anesthesia of skin; I10 Essential (primary) hypertension; W18.30XA Fall on same level, unspecified, initial encounter; Y92.524 Gas station as the place of occurrence of the external cause; F17.200 Nicotine dependence, unspecified, uncomplicated; F41.9 Anxiety disorder, unspecified
CPT/HCPCS: 00600; 20930; 22551; 22552; 22845; 72040; 72131; 72141; 72146; 72148; 76000; 80048; 80053; 83605; 85025; 85610; 85730; 92610; 94150; 94640; 94664; 96361; 96374; 96375; 96376; 97116; 97161; 97164; 99285; C1713; G0378; G8987; G8988; G8996; G8997; J0360; J0690; J1100; J1170; J1580; J1885; J2250; J2270; J2370; J2405; J3010; J3480; J7120; J7611; J7613; L0150; L0172